=== PATIENT | male | born 1965 | race Caucasian/White ===

== ENCOUNTER 2017-02-14 06:30 | Inpatient (IN) | payer MEDICAID, OTHER ==
[~2017-02-14] VITALS: Ht 177.8 cm; Wt 80.0 kg
[~2017-02-14 06:30] MED LIST: ACET500C5 PO; BACTDS PO; CEPH-443 PO
[2017-02-14] MEDS ORDERED: PIPER-TAZO 3.375 GM IV (PMX) 100 ML IVPB STA ×2 (07:05→11:50)
[2017-02-14] MEDS ORDERED: SODIUM CHLORIDE 0.9% 1L BAG IV* STA (07:05)
[2017-02-14] MEDS ORDERED: VANCOMYCIN 1 GM (PMX) 250 ML IVPB ONE ×2 (07:30→12:00)
[2017-02-14] MEDS ORDERED: LIDOCAINE 1% (MPF) 5 ML VIAL SC ONE (07:30)
[2017-02-14] MEDS ORDERED: ACETAMINOPHEN 325 MG TAB PO PRN ×2 (07:30→08:30)
[2017-02-14] MEDS ORDERED: ONDANSETRON 4 MG INJ IV PRN (07:30)
--- NOTE | 2017-02-14 07:50 | RADRPT ---
PROCEDURE: Chest Radiograph. CLINICAL INDICATION: Sepsis TECHNIQUE: Single frontal chest radiograph. COMPARISON: None available FINDINGS: The cardiomediastinal silhouette is within normal limits. No infiltrate or effusion is seen. Th e bones are intact. IMPRESSION: 1. Unremarkable chest radiograph. RPTAT: HJBF .Andrea Skinner MD, MD Date Time Electronically viewed and signed by .Andrea Skinner MD, on 02/14/2017 07:50 .B/
--- NOTE | 2017-02-14 07:51 | RADRPT ---
PROCEDURE: Right knee series. CLINICAL INDICATION: Right knee pain and infection. TECHNIQUE: Three views of the right knee are available for review. COMPARISON: None available FINDINGS: There is normal mineralization and alignment of the bones of the right knee. No acute fracture or d islocation is identified. There is suggestion of a large knee joint effusion though diffuse soft ti ssue swelling limits evaluation. There is a large skin defect overlying the superior aspect of the anterior knee which extends to the level of the patella. There is no definitive cortical destructio n or other plain film evidence of osteomyelitis. IMPRESSION: 1. Marked soft tissue swelling with large skin defect overlying the anterior knee without definitiv e plain film evidence of osteomyelitis. Please note MRI is far more sensitive for the detection of osteomyelitis. RPTAT: HJBF .Andrea Skinner MD, Date Time Electronically viewed and signed by .Andrea Skinner MD, on 02/14/2017 07:51 .B/
--- NOTE | 2017-02-14 08:21 | ERA ---
ER Documentation Chief Complaint Date/Time DATE: 02/14/17 TIME: 08:17 Chief Complaint r. knee ulceration, non compliant w fu for IV antibx HPI Patient is a 51-year-old male with hypertension and smoking as well as heroin use who presents with a right knee infection and wound. He had an injury 3 weeks ago which has been getting worse over the past 3 weeks. He was seen by another doctor was supposed to be on antibiotics but he has not filled this prescription or taken any antibiotics as of yet. He admits to using heroin and alcohol yesterday. He does smoke cigarettes as well. The wound is deep at this point and there is a black covering to the area, there is also surrounding redness. ROS All systems reviewed and are negative except as per history of present illness. Medications Home Meds Active Scripts Acetaminophen* (Tylophen*) 500 Mg Capsule, 1 CAP PO Q6H Y for PAIN AND OR ELEVATED TEMP, #20 CAP Prov:RACHNA GARZA OIL LEASE OPERATOR 07/07/15 Cephalexin* (Keflex*) 500 Mg Capsule, 500 MG PO QID for 10 Days, CAP Prov:RACHNA GARZA OIL LEASE OPERATOR 07/07/15 Sulfamethoxazole-Trimethoprim* (Bactrim* DS) 800-160 Mg Tab, 1 TAB PO BID for 10 Days, TAB Prov:RACHNA GARZA OIL LEASE OPERATOR 07/07/15 Reported Medications [none] Unknown Strength No Conflict Check 07/07/15 Allergies Allergies: Coded Allergies: No Known Allergy (Unverified , 07/07/15) PMhx/Soc History of Surgery: No Anesthesia Reaction: No Hx Neurological Disorder: No Hx Respiratory Disorders: No Hx Cardiac Disorders: No (HTN) Hx Psychiatric Problems: No Hx Miscellaneous Medical Probl: No (HEP C) Hx Alcohol Use: Yes Hx Substance Use: Yes Hx Tobacco Use: Yes Smoking Status: Current every day smoker FmHx Family History: No diabetes Physical Exam Vitals Vital Signs Date Time Temp Pulse Resp B/P Pulse Ox O2 Delivery O2 Flow Rate FiO2 02/14/17 07:15 97.8 87 18 115/64 99 Room Air 02/14/17 06:44 97.4 77 20 139/77 96 Physical Exam Const: No acute distress Head: Atraumatic Eyes: Normal Conjunctiva ENT: Normal External Ears, Nose and Mouth. Neck: Full range of motion..~ No meningismus. Resp: Clear to auscultation bilaterally Cardio: Regular rate and rhythm, no murmurs Abd: Soft, non tender, non distended. Normal bowel sounds Skin: Deep wound over the anterior portion of the knee on the right side, surrounding erythema, black eschar formation over the middle of the wound Back: No midline or flank tenderness Ext: No cyanosis, or edema, patient does have range of motion of the right lower extremity Neur: Awake and alert Psych: Normal Mood and Affect Results 24 hrs Current Medications Medications (Trade) Dose Ordered Sig/Lauren Route PRN Reason Start Time Stop Time Status Last Admin Dose Admin Sodium Chloride 2540 ml 2,540 ml BOLUS OVER 2 HOURS STAT IV* 02/14/17 07:05 02/14/17 07:08 DC Vancomycin HCl 250 ml @ 125 mls/hr ONCE ONCE IVPB 02/14/17 07:30 02/14/17 09:29 Piperacillin Sod/ Tazobactam Sod (Zosyn 3.375gm/ 100 ml (Pmx)) 100 ml @ 200 mls/hr ONCE STAT IVPB 02/14/17 07:05 02/14/17 07:34 DC Lidocaine (Xylocaine 1% (Mpf)) 5 ml ONCE ONCE SC 02/14/17 07:30 02/14/17 07:31 DC Ondansetron HCl (Zofran Inj) 4 mg BRIDGE ORDER PRN IV NAUSEA AND/OR VOMITING 02/14/17 07:30 02/15/17 07:29 Acetaminophen (Tylenol Tab) 650 mg ER BRIDGE PRN PO MILD PAIN/FEVER 02/14/17 07:30 02/15/17 07:29 Procedures/MDM EKG read by me: Rate/Rhythm: Regular rate and rhythm at a normal rate Intervals: Normal Impression: No evidence of ischemia or arrhythmia PROCEDURE: Right knee series. CLINICAL INDICATION: Right knee pain and infection. TECHNIQUE: Three views of the right knee are available for review. COMPARISON: None available FINDINGS: There is normal mineralization and alignment of the bones of the right knee. No acute fracture or dislocation is identified. There is suggestion of a large knee joint effusion though diffuse soft tissue swelling limits evaluation. There is a large skin defect overlying the superior aspect of the anterior knee which extends to the level of the patella. There is no definitive cortical destruction or other plain film evidence of osteomyelitis. IMPRESSION: 1. Marked soft tissue swelling with large skin defect overlying the anterior knee without definitive plain film evidence of osteomyelitis. Please note MRI is far more sensitive for the detection of osteomyelitis. RPTAT: HJBF .Andrea Skinner MD, MD Date Time Electronically viewed and signed by .Andrea Skinner MD, MD on 2016 07:51 PROCEDURE: Chest Radiograph. CLINICAL INDICATION: Sepsis TECHNIQUE: Single frontal chest radiograph. COMPARISON: None available FINDINGS: The cardiomediastinal silhouette is within normal limits. No infiltrate or effusion is seen. The bones are intact. IMPRESSION: 1. Unremarkable chest radiograph. RPTAT: HJBF .Andrea Skinner MD, MD Date Time Electronically viewed and signed by .Andrea Skinner MD, MD on 2016 07:50 Smoking Cessation Therapy: Pt. was lectured for greater than 3 minutes on the health risks of continued smoking and the benefits of cessation. Patient is a 51-year-old male with hypertension, heroin use, and smoking who presents with a right knee wound which is deep with surrounding cellulitis. This is been getting worse. I am concerned for cellulitis as well as possible osteomyelitis given the depth of the wound. He also is homeless and is using drugs and cigarettes which will contribute to the lack of wound healing. I believe that he requires IV antibiotics and aggressive wound consultation. I spoke with Dr. Langston from the panel team who will admit the patient to a medical surgical bed. The patient would likely benefit from amputation prevention center consultation. At this point I doubt sepsis. The patient has poor IV access given his history of heroin use and says "I need a midline placed". I did order a PICC line at this time for IV access. The patient does not require central line and I think the risks outweigh the benefits at this time. Departure Diagnosis: Primary Impression: Cellulitis Qualified Code: L03.115 - Cellulitis of right lower extremity Additional Impression: Wound infection Condition: GURWINDER Vo MD Feb 14, 2017 08:21
[2017-02-14] MEDS ORDERED: MAGNESIUM HYDROXIDE 30ML CUP PO PRN (08:30)
[2017-02-14] MEDS ORDERED: NACL 0.9% 3 ML SYG IV SCH (08:30)
[2017-02-14] MEDS ORDERED: DOCUSATE SODIUM 100 MG CAP PO PRN (08:30)
[2017-02-14] MEDS ORDERED: BISACODYL (EC) 5 MG TAB PO PRN (08:30)
[2017-02-14] MEDS: ENOXAPARIN 40 MG/0.4 ML SYG SC SCH (09:00)
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
--- NOTE | 2017-02-14 10:35 | RADRPT ---
PROCEDURE: XR Chest. CLINICAL INDICATION: Check PICC line position. TECHNIQUE: Single frontal view. COMPARISON: Prior study done earlier the same day. FINDINGS: There is a left arm PICC line with the tip in the lower superior vena cava. The lungs are clear. The heart size is normal. There is no pleural effusion. There is no pneumothorax. IMPRESSION: 1. Left arm PICC line tip in satisfactory position. 2. Otherwise normal chest radiograph. RPTAT: QQ .Mario Thapa MD, Date Time Electronically viewed and signed by .Mario Thapa MD, on 02/14/2017 10:35 .R/
--- NOTE | 2017-02-14 10:36 | RADRPT ---
PROCEDURE: XR Chest. CLINICAL INDICATION: Check PICC line position. TECHNIQUE: Single frontal view. COMPARISON: Prior study done earlier the same day. FINDINGS: There is a left arm PICC line with the tip in the left subclavian vein, coiled laterally. The lungs are clear. The heart size is normal. There is no pleural effusion. There is no pneumothorax. IMPRESSION: 1. Left arm PICC line tip in satisfactory position, coiled laterally. 2. Otherwise normal chest radiograph. RPTAT: QQ .Mario Thapa MD, MD Date Time Electronically viewed and signed by .Mario Thapa MD, MD on 02/14/2017 10:35 .R/
--- NOTE | 2017-02-14 10:38 | RADRPT ---
PROCEDURE: Ultrasound guidance for placement of needle in left upper extremity vein. CLINICAL INDICATION: Venous access. TECHNIQUE: Limited sonography of the left upper extremity was performed. Ultrasound images were recorded and s tored in the patient's medical record. COMPARISON: None. FINDINGS: The ultrasound images demonstrate a patent left upper extremity vein. The PICC line was inserted by the PICC line nurse. IMPRESSION: 1. Ultrasound guidance for a needle placement in a left upper extremity vein. 2. The left upper extremity vein is patent. RPTAT: QQ .Mario Thapa MD, MD Date Time Electronically viewed and signed by .Mario Thapa MD, MD on 02/14/2017 10:38 .R/
[2017-02-14 11:35] LABS: BASOPHILS % 0.3 % (0.0-2.0); EOSINOPHILS # 0.3 10^3/ul (0.0-0.5); EOSINOPHILS % 4.8 % (0.0-7.0); HEMATOCRIT 32.2 % (42.0-52.0); HEMOGLOBIN 10.7 g/dl (14.0-18.0); LYMPHOCYTES # 2.5 10^3/ul (0.8-2.9); LYMPHOCYTES % 36.7 % (15.0-51.0); MEAN CORPUSCULAR HEMOGLOBIN 28.5 pg (29.0-33.0); MEAN CORPUSCULAR HGB CONC 33.2 g/dl (32.0-37.0); MEAN CORPUSCULAR VOLUME 85.9 fl (82.0-101.0); MEAN PLATELET VOLUME 9.6 fl (7.4-10.4); MONOCYTE # 0.7 10^3/ul (0.3-0.9); MONOCYTES % 9.4 % (0.0-11.0); NEUTROPHILS % 48.7 % (39.0-77.0); PLATELET COUNT 261 10^3/UL (140-415); RED BLOOD COUNT 3.75 10^6/ul (4.70-6.10); RED CELL DISTRIBUTION WIDTH 13.3 % (11.5-14.5); WHITE BLOOD COUNT 6.9 10^3/ul (4.8-10.8)
[2017-02-14] MEDS ORDERED: SOD CHLORIDE 0.9% 100 ML ONE (11:38)
[2017-02-14] MEDS ORDERED: VANCOMYCIN 1 GM (PMX) 250 ML ONE (11:48)
[2017-02-14] MEDS ORDERED: PIPER-TAZO 3.375 GM IV (PMX) 100 ML ONE (11:49)
[2017-02-14 11:57] LABS: ALANINE AMINOTRANSFERASE 39 IU/L (13-69); ALBUMIN 3.6 g/dl (3.3-4.9); ALBUMIN/GLOBULIN RATIO 0.94; ALKALINE PHOSPHATASE 58 IU/L (42-121); ANION GAP 9 (8-16); ASPARTATE AMINO TRANSFERASE 31 IU/L (15-46); BILIRUBIN,INDIRECT 0.1 mg/dl (0-1.1); BILIRUBIN,TOTAL 0.1 mg/dl (0.2-1.3); BLOOD UREA NITROGEN 20 mg/dl (7-20); CALCIUM 8.6 mg/dl (8.4-10.2); CARBON DIOXIDE 28 mmol/L (21-31); CHLORIDE 103 mmol/L (97-110); CREATININE 0.83 mg/dl (0.61-1.24); GLUCOSE 88 mg/dl (70-220); POTASSIUM 3.5 mmol/L (3.5-5.1); SODIUM 136 mmol/L (135-144); TOTAL PROTEIN 7.4 g/dl (6.1-8.1)
[2017-02-14 12:11] LABS: INR 0.91; PROTIME 12.3 Sec (12.2-14.2); TROPONIN-I < 0.012 ng/ml (0.00-0.12)
[2017-02-14 12:12] LABS: PARTIAL THROMBOPLASTIN TIME 34.5 Sec (25.0-35.0)
[2017-02-14] MEDS: CEFAZOLIN 1 GM/50 ML (PMX) 50 ML IVPB SCH (15:20)
[2017-02-14 15:23] VITALS: TEMP 98.4
[2017-02-14 15:43] VITALS: Ht 177.8 cm; Wt 80.0 kg
[2017-02-14 20:00] VITALS: BP 150/83; PULSE 71; RESP 18
[2017-02-14] MEDS: HYDROCODONE/APAP (5/325) TAB PO PRN (21:12)
[2017-02-14 21:15] VITALS: BP 142/85; PULSE 77; RESP 16
[2017-02-14 23:00] VITALS: BP 173/109; PULSE 73; RESP 20
[2017-02-15] MEDS: CEFAZOLIN 1 GM/50 ML (PMX) 50 ML IVPB SCH ×4 (00:14→23:01)
[2017-02-15 00:30] VITALS: BP 180/109; PULSE 75
[2017-02-15] MEDS ORDERED: hydrALAzine 20 MG INJ IV PRN (01:00)
[2017-02-15 03:00] VITALS: BP 153/103; RESP 18
[2017-02-15] MEDS: HYDROCODONE/APAP (5/325) TAB PO PRN ×2 (04:00→10:48)
[2017-02-15 06:58] LABS: ADD UMIC NO; UR ASCORBIC ACID NEGATIVE (NEGATIVE); UR BILIRUBIN (Dip) NEGATIVE (NEGATIVE); UR BLOOD (Dip) NEGATIVE (NEGATIVE); UR CLARITY CLEAR (CLEAR); UR COLOR COLORLESS (YELLOW); UR GLUCOSE (Dip) NEGATIVE (NEGATIVE); UR KETONES (Dip) NEGATIVE (NEGATIVE); UR LEUKOCYTE ESTERASE (Dip) NEGATIVE Leu/ul (NEGATIVE); UR NITRITE (Dip) NEGATIVE (NEGATIVE); UR SPECIFIC GRAVITY (Dip) 1.006 (1.003-1.030); UR TOTAL PROTEIN (Dip) NEGATIVE (NEGATIVE); UR UROBILINOGEN (Dip) NEGATIVE (NEGATIVE)
[2017-02-15] MEDS: ENOXAPARIN 40 MG/0.4 ML SYG SC SCH (08:33)
[2017-02-15 09:30] LABS: BASOPHILS % 0.4 % (0.0-2.0); EOSINOPHILS # 0.2 10^3/ul (0.0-0.5); EOSINOPHILS % 3.1 % (0.0-7.0); HEMATOCRIT 36.9 % (42.0-52.0); HEMOGLOBIN 12.3 g/dl (14.0-18.0); LYMPHOCYTES # 1.5 10^3/ul (0.8-2.9); LYMPHOCYTES % 19.9 % (15.0-51.0); MEAN CORPUSCULAR HEMOGLOBIN 28.1 pg (29.0-33.0); MEAN CORPUSCULAR HGB CONC 33.3 g/dl (32.0-37.0); MEAN CORPUSCULAR VOLUME 84.4 fl (82.0-101.0); MONOCYTE # 0.4 10^3/ul (0.3-0.9); MONOCYTES % 5.9 % (0.0-11.0); NEUTROPHILS % 70.4 % (39.0-77.0); PLATELET COUNT 281 10^3/UL (140-415); RED BLOOD COUNT 4.37 10^6/ul (4.70-6.10); RED CELL DISTRIBUTION WIDTH 13.2 % (11.5-14.5); WHITE BLOOD COUNT 7.4 10^3/ul (4.8-10.8)
[2017-02-15 09:39] LABS: CALCIUM 9.2 mg/dl (8.4-10.2); CREATININE 0.8 mg/dl (0.61-1.24); POTASSIUM 3.7 mmol/L (3.5-5.1)
[2017-02-15] MEDS ORDERED: ALTEPLASE (CATHFLO) 2 MG INJ CATHETER PRN (12:00)
[2017-02-15] MEDS ORDERED: AMLODIPINE 10 MG TAB PO ONE (12:00)
[2017-02-15 12:20] VITALS: BP 168/106; PULSE 81
[2017-02-15] MEDS: HYDROmorphONE 1 MG/ML SYG IV PRN ×3 (12:21→20:25)
[2017-02-15 14:00] VITALS: BP 144/99; RESP 18
--- NOTE | 2017-02-15 16:40 | RADRPT ---
PROCEDURE: XR right elbow. CLINICAL INDICATION: Right elbow pain. TECHNIQUE: Three views. Frontal, lateral, and oblique. COMPARISON: No prior study is available for comparison. FINDINGS: There is no fracture or dislocation. There is fluid in the elbow joint. There are degenerative changes with osteophytes arising from the joint margins. There is no lytic or blastic lesion. There is no radiopaque foreign body. IMPRESSION: 1. Degenerative change. 2. Fluid in the elbow joint. This may indicate a nondisplaced fracture. Correlation with MRI shou ld be considered. 3. Otherwise unremarkable images of the right elbow. RPTAT: QQ .Mario Thapa MD, MD Date Time Electronically viewed and signed by .Mario Thapa MD, MD on 02/15/2017 16:39 .R/
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
[2017-02-15 20:47] VITALS: BP 158/103; RESP 18
[2017-02-15 22:58] VITALS: BP 133/80; PULSE 88
[2017-02-16] MEDS: HYDROmorphONE 1 MG/ML SYG IV PRN ×6 (00:18→20:35)
[2017-02-16 02:11] VITALS: BP 146/91; RESP 18
[2017-02-16 06:13] LABS: BASOPHILS % 0.4 % (0.0-2.0); EOSINOPHILS # 0.4 10^3/ul (0.0-0.5); EOSINOPHILS % 4.8 % (0.0-7.0); HEMATOCRIT 37.9 % (42.0-52.0); HEMOGLOBIN 12.6 g/dl (14.0-18.0); LYMPHOCYTES # 2.3 10^3/ul (0.8-2.9); LYMPHOCYTES % 29.8 % (15.0-51.0); MEAN CORPUSCULAR HEMOGLOBIN 28.5 pg (29.0-33.0); MEAN CORPUSCULAR HGB CONC 33.2 g/dl (32.0-37.0); MEAN CORPUSCULAR VOLUME 85.7 fl (82.0-101.0); MEAN PLATELET VOLUME 9.4 fl (7.4-10.4); MONOCYTE # 0.6 10^3/ul (0.3-0.9); MONOCYTES % 7.3 % (0.0-11.0); NEUTROPHILS % 57.4 % (39.0-77.0); PLATELET COUNT 277 10^3/UL (140-415); RED BLOOD COUNT 4.42 10^6/ul (4.70-6.10); RED CELL DISTRIBUTION WIDTH 13.4 % (11.5-14.5); WHITE BLOOD COUNT 7.8 10^3/ul (4.8-10.8)
[2017-02-16] MEDS: CEFAZOLIN 1 GM/50 ML (PMX) 50 ML IVPB SCH ×3 (06:17→23:00)
[2017-02-16 06:34] LABS: INR 0.91; PROTIME 12.2 Sec (12.2-14.2)
[2017-02-16 06:37] LABS: ALBUMIN 3.4 g/dl (3.3-4.9); ALBUMIN/GLOBULIN RATIO 0.79; BILIRUBIN,INDIRECT 0.1 mg/dl (0-1.1); BILIRUBIN,TOTAL 0.1 mg/dl (0.2-1.3); CALCIUM 9.2 mg/dl (8.4-10.2); CREATININE 0.92 mg/dl (0.61-1.24); POTASSIUM 3.8 mmol/L (3.5-5.1); TOTAL PROTEIN 7.7 g/dl (6.1-8.1)
[2017-02-16 07:30] VITALS: BP 136/89; RESP 18
[2017-02-16] MEDS: ENOXAPARIN 40 MG/0.4 ML SYG SC SCH (08:57)
[2017-02-16] MEDS: AMLODIPINE 10 MG TAB PO SCH (08:58)
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
[2017-02-16 13:30] VITALS: BP 146/91; RESP 18
[2017-02-16 20:05] VITALS: BP 152/92; RESP 18
[2017-02-17 02:00] VITALS: BP 138/92; RESP 18
[2017-02-17] MEDS: CEFAZOLIN 1 GM/50 ML (PMX) 50 ML IVPB SCH ×3 (07:34→22:19)
[2017-02-17 07:37] VITALS: BP 164/99; RESP 18
--- NOTE | 2017-02-17 07:42 | CONS ---
DATE OF ADMISSION: 02/14/2017 DATE OF CONSULTATION: 02/17/2017 CHIEF COMPLAINT: Right knee wound. HISTORY OF PRESENT ILLNESS: This is a 51-year-old male with past medical history, including IV drug use, hepatitis C, who has been noncompliant. Patient has had a previous right knee injury approximately 3 weeks ago. He was previously evaluated by myself at [facility]. He was given IV antibiotics. He was discharged to [facility]. Patient left against medical advice from [facility]. He is complaining of pain over his right knee. He denies any fevers or chills. PAST MEDICAL HISTORY: Hepatitis C and IV drug use. MEDICATION: IV vancomycin as an outpatient. PAST SURGICAL HISTORY: None. SOCIAL HISTORY: Patient is homeless. He admits to tobacco use. He admits to alcohol use. He admits to IV drug use. FAMILY HISTORY: Noncontributory. ALLERGIES: NO KNOWN DRUG ALLERGIES. PHYSICAL EXAMINATION: VITAL SIGNS: 98.2, 138/92, 73 pulse, 18 respiratory rate . GENERAL: Patient is comfortable, in no acute distress. EXTREMITIES: Right knee: There is a large 10 cm eschar over the right knee. There is no drainage. There is no cellulitis. There is no fluctuance. He is able to range his knee from 0-100 degrees. There is no crepitation. He has palpable dorsalis pedis and posterior tibialis pulses. LABORATORY: White blood cell count 7.8. ESR is 33. CRP is 1.2. IMPRESSION: This is a 51-year-old, noncompliant patient, with a right knee scar. PLAN: I spoke with Internal Medicine. There is no orthopedic intervention required. I recommend plastic surgery consultation. If Plastic Surgery is not available, I recommend discharge with a followup with Plastic Surgery. I recommend IV antibiotics per Infectious Disease recommendations. Thank you for the consultation. Dictated By: Judy Devine MD /jose/jordan /Document#: [id number]
[2017-02-17] MEDS: AMLODIPINE 10 MG TAB PO SCH (08:40)
[2017-02-17] MEDS: HYDROmorphONE 1 MG/ML SYG IV PRN ×4 (08:40→21:15)
[2017-02-17] MEDS: ENOXAPARIN 40 MG/0.4 ML SYG SC SCH (08:46)
--- NOTE | 2017-02-17 13:09 | RADRPT ---
PROCEDURE: MRI OF THE RIGHT ELBOW. CLINICAL INDICATION: Right elbow pain. Fluid in the joint. X-ray showed nondisplaced fracture. TECHNIQUE: Multiple MRI images were obtained utilizing multiple sequences and all three planes. Ana Maria ges were interpreted on high-resolution PACS system. COMPARISON: X-ray dated 02/15/2017 FINDINGS: Medial aspect: No evidence for flexor tendinosis or tear. The ulnar collateral ligament is intact. No osteochondral fracture of the medial elbow seen. The ulnar nerve appears normal. Lateral aspect: There is severe lateral epicondylitis present with partial tearing of the common ex tensor tendon origin. There is retraction of 2 cm seen on coronal images 12-15 and axial image numb er 20. There is preservation of the superficial fibers. Partial tearing effects approximately 95 % of the overall cross-sectional area of the common extensor tendon origin. There is reactive soft ti ssue edema. There is also chronic tearing of the origin of the lateral ulnar collateral ligament and radial collateral ligament. Biceps and Triceps Tendons: The biceps and triceps tendons are intact. Osseous structures: Advanced arthrosis of the elbow joint consists of grade 3 to 4 chondromalacia, subcortical sclerosis and cyst formation, subcortical bone marrow edema, osteophyte formation and vicky ne remodeling. Other findings: There is synovitis and a large joint effusion. There is joint debris, probably loos e bodies. IMPRESSION: 1. Advanced elbow arthrosis. 2. No fracture is identified. 3. Severe chronic lateral epicondylitis with extensive partial tearing of the common extensor tendo n origin as well as tearing of the common origin of the radial collateral ligament and lateral ulnar collateral ligament. 4. Synovitis and large joint effusion and there is joint debris, probable loose bodies. RPTAT: XX .Clarence Crawford MD, MD Date Time Electronically viewed and signed by .Clarence Crawford MD, MD on 02/17/2017 13:09 .T/
--- NOTE | 2017-02-17 14:53 | PN ---
Date/Time of Note Date/Time of Note DATE: 02/17/17 TIME: 14:53 Assessment/Plan VTE Prophylaxis VTE Prophylaxis Intervention: LMWH Lines/Catheters IV Catheter Type (from Nrsg): PICC Line Central line still needed: No Assessment/Plan Chief Complaint/Hosp Course 51 yo male with h/o opiate abuse d/o who presents with nonhealing wound of knee 1.Right knee cellulitis, MRI negative for osteomyelitis 2. Intractable right knee pain 3. H/o Fall and H/o Injury to Right knee 4. H/o substance abuse 5. narcotic dependance 6. right elbow pain, MRI elbow shows: -Severe chronic lateral epicondylitis with extensive partial tearing of the common extensor tendon origin as well as tearing of the common origin of the radial collateral ligament and lateral ulnar collateral ligament. Plan: IV abx MRI Right knee negative osteomyelitis - needs plastic surgery consult MRI elbow as above - will ask orthopedics to comment PICC Line in place, Add dialudid 1 mg IV Q 4 hr prn severe pain pain management Consult Dr. Welsh to see pt for pain control SCD for DVT prophylaxis Problems: Subjective 24 Hr Interval Summary Free Text/Dictation Pt stable Still wtih severe pain in knee Unable to ambulate Seen by Dr Ross, no need for orthopedic intervention Exam/Review of Systems Vital Signs Vitals Vital Signs Date Time Temp Pulse Resp B/P Pulse Ox O2 Delivery O2 Flow Rate FiO2 02/17/17 07:37 98.8 78 18 164/99 96 02/14/17 23:00 Room Air Intake and Output 02/16/17 02/16/17 02/17/17 15:00 23:00 07:00 Intake Total 1250 ml 690 ml Output Total 1200 ml Balance 1250 ml -510 ml Exam Appears well Nontoxic Open ulceration over knee. Necrotic central area, borders very clean with healthy grandulation tissue Results Result Diagram: 02/16/17 0546 02/16/17 0546 Medications Medications Current Medications Acetaminophen (Tylenol Tab) 650 mg Q6H PRN PO PAIN LEVEL 1-3 OR FEVER; Start at 08:30 Acetaminophen/ Hydrocodone Bitart ([place] (5/325)) 1 tab Q6H PRN PO MODERATE PAIN LEVEL 4-6 Last administered on 02/15/17t 10:48; Admin Dose 1 TAB; Start at 08:30 Docusate Sodium (Colace) 100 mg Q12H PRN PO CONSTIPATION; Start 02/14/17 at 08: 30 Magnesium Hydroxide (Milk Of Mag) 30 ml DAILY PRN PO CONSTIPATION; Start at 08:30 Bisacodyl (Dulcolax) 5 mg DAILY PRN PO CONSTIPATION; Start 02/14/17 at 08:30 Enoxaparin Sodium 40 mg 40 mg DAILY SC Last administered on 02/17/17 08:46; Admin Dose 40 MG; Start 02/14/17 at 09:00 Cefazolin Sodium (Ancef 1 Gm/50 ml (Pmx)) 50 ml @ 100 mls/hr Q8H IVPB Last administered on 02/17/17 07:34; Admin Dose 100 MLS/HR; Start 02/14/17 at 15:00 Hydralazine HCl (Apresoline) 10 mg Q6H PRN IV ELEVATED SYSTOLIC BP Last administered on 02/15/17 01:00; Admin Dose 10 MG; Start 02/15/17 at 01:00 Amlodipine Besylate (Norvasc) 10 mg DAILY PO Last administered on 02/17/17 08: 40; Admin Dose 10 MG; Start 02/16/17 at 09:00 Hydromorphone HCl (Dilaudid) 2 mg Q4H PRN IV Severe pain Last administered on 12:58; Admin Dose 2 MG; Start 02/15/17 at 12:00 JOE MARTINEZ MD Feb 17, 2017 14:53
[2017-02-17 15:27] VITALS: BP 145/96; RESP 18
[2017-02-17] MEDS: HYDROCODONE/APAP (5/325) TAB PO PRN (15:38)
[2017-02-17 19:23] VITALS: BP 130/90; RESP 18
[2017-02-17] MEDS: SERTRALINE 50 MG TAB PO SCH (21:15)
[2017-02-17] MEDS: METHADONE 10 MG TAB PO SCH (22:18)
[2017-02-18] MEDS: HYDROmorphONE 1 MG/ML SYG IV PRN ×6 (01:16→21:31)
[2017-02-18 02:00] VITALS: BP 126/92; RESP 18
[2017-02-18] MEDS: METHADONE 10 MG TAB PO SCH ×3 (06:20→22:47)
[2017-02-18] MEDS: CEFAZOLIN 1 GM/50 ML (PMX) 50 ML IVPB SCH ×3 (06:20→22:45)
[2017-02-18 07:53] VITALS: BP 132/95; RESP 16
[2017-02-18] MEDS: AMLODIPINE 10 MG TAB PO SCH (09:26)
[2017-02-18] MEDS: ENOXAPARIN 40 MG/0.4 ML SYG SC SCH (09:33)
--- NOTE | 2017-02-18 11:19 | PN ---
Date/Time of Note Date/Time of Note DATE: 02/18/17 TIME: 11:15 Assessment/Plan VTE Prophylaxis VTE Prophylaxis Intervention: SCD's Lines/Catheters IV Catheter Type (from Nrsg): PICC Line Central line still needed: Yes (difficult peripheral access ) Urinary Cath still in place: No Assessment/Plan Assessment/Plan 1.Right knee cellulitis, MRI negative for osteomyelitis 2. Intractable right knee pain 3. H/o Fall and H/o Injury to Right knee 4. H/o substance abuse 5. narcotic dependance 6. right elbow pain, xray showed Severe chronic lateral epicondylitis with extensive partial tearing of the common extensor tendon origin as well as tearing of the common origin of the radial collateral ligament and lateral ulnar collateral ligament. MRI elbow shows: -Severe chronic lateral epicondylitis with extensive partial tearing of the common extensor tendon origin as well as tearing of the common origin of the radial collateral ligament and lateral ulnar collateral ligament. Plan: IV abx MRI Right knee negative osteomyelitis - needs plastic surgery consult MRI elbow as above - will ask orthopedics to comment PICC Line in place, continue dialudid 1 mg IV Q 4 hr prn severe pain Pain management consulted on the case I communicated with ortho on 02/16/17- Not seen by yet as per Nursing staff, No note in system. SCD for DVT prophylaxis Subjective 24 Hr Interval Summary Free Text/Dictation no acute events, BP stable, c/o right knee pain Exam/Review of Systems Vital Signs Vitals Vital Signs Date Time Temp Pulse Resp B/P Pulse Ox O2 Delivery O2 Flow Rate FiO2 02/18/17 07:53 97.7 60 16 132/95 97 02/14/17 23:00 Room Air Intake and Output 02/17/17 02/17/17 02/18/17 14:59 22:59 06:59 Intake Total 50 ml 1720 ml 880 ml Output Total 1000 ml 1220 ml Balance 50 ml 720 ml -340 ml Exam multiple tattoos, significant dirt under fingernails EOMI MMM no mrg lungs clear abd soft no rashes + 8 cm x 4cm wound to R lower knee, subQ fat visible at lateral edges, 6 cm x 3.5cm eschar adherent to middle of wound, ~1 cm of erythema surrounding wound edges, no purulence full AROM R knee 2+ pulses R DP Results Result Diagram: 02/16/17 0546 02/16/1746 Medications Medications Current Medications Acetaminophen (Tylenol Tab) 650 mg Q6H PRN PO PAIN LEVEL 1-3 OR FEVER; Start at 08:30 Acetaminophen/ Hydrocodone Bitart ([place] (5/325)) 1 tab Q6H PRN PO MODERATE PAIN LEVEL 4-6 Last administered on 02/17/17 15:38; Admin Dose 1 TAB; Start at 08:30 Docusate Sodium (Colace) 100 mg Q12H PRN PO CONSTIPATION; Start 02/14/17 at 08: 30 Magnesium Hydroxide (Milk Of Mag) 30 ml DAILY PRN PO CONSTIPATION; Start at 08:30 Bisacodyl (Dulcolax) 5 mg DAILY PRN PO CONSTIPATION; Start 02/14/17 at 08:30 Enoxaparin Sodium 40 mg 40 mg DAILY SC Last administered on 02/18/17 09:33; Admin Dose 40 MG; Start 02/14/17 at 09:00 Cefazolin Sodium (Ancef 1 Gm/50 ml (Pmx)) 50 ml @ 100 mls/hr Q8H IVPB Last administered on 02/18/17 06:20; Admin Dose 100 MLS/HR; Start 02/14/17 at 15:00 Hydralazine HCl (Apresoline) 10 mg Q6H PRN IV ELEVATED SYSTOLIC BP Last administered on 02/15/17 01:00; Admin Dose 10 MG; Start 02/15/17 at 01:00 Amlodipine Besylate (Norvasc) 10 mg DAILY PO Last administered on 02/18/17 09: 26; Admin Dose 10 MG; Start 02/16/17 at 09:00 Hydromorphone HCl (Dilaudid) 2 mg Q4H PRN IV Severe pain Last administered on 09:27; Admin Dose 2 MG; Start 02/15/17 at 12:00 Methadone HCl (Methadone) 10 mg Q8 PO Last administered on 02/18/17 06:20; Admin Dose 10 MG; Start 02/17/17 at 22:00 Sertraline HCl (Zoloft) 50 mg HS PO Last administered on 02/17/17 21:15; Admin Dose 50 MG; Start 02/17/17 at 21:00 REYNALDO MARK MD Feb 18, 2017 11:19
[2017-02-18 14:00] VITALS: BP 130/70; RESP 16
[2017-02-18 20:00] VITALS: BP 136/86; RESP 18
[2017-02-18] MEDS: SERTRALINE 50 MG TAB PO SCH (20:52)
[2017-02-19] MEDS: HYDROmorphONE 1 MG/ML SYG IV PRN ×6 (01:38→22:33)
[2017-02-19 02:00] VITALS: BP 129/86; RESP 18
[2017-02-19 05:37] LABS: BASOPHILS % 0.7 % (0.0-2.0); EOSINOPHILS # 0.4 10^3/ul (0.0-0.5); EOSINOPHILS % 7.5 % (0.0-7.0); HEMATOCRIT 36.2 % (42.0-52.0); HEMOGLOBIN 11.7 g/dl (14.0-18.0); LYMPHOCYTES # 1.9 10^3/ul (0.8-2.9); LYMPHOCYTES % 34.3 % (15.0-51.0); MEAN CORPUSCULAR HEMOGLOBIN 28.5 pg (29.0-33.0); MEAN CORPUSCULAR HGB CONC 32.3 g/dl (32.0-37.0); MEAN CORPUSCULAR VOLUME 88.1 fl (82.0-101.0); MEAN PLATELET VOLUME 8.9 fl (7.4-10.4); MONOCYTE # 0.6 10^3/ul (0.3-0.9); MONOCYTES % 10.9 % (0.0-11.0); NEUTROPHILS % 46.4 % (39.0-77.0); PLATELET COUNT 218 10^3/UL (140-415); RED BLOOD COUNT 4.11 10^6/ul (4.70-6.10); RED CELL DISTRIBUTION WIDTH 13.6 % (11.5-14.5); WHITE BLOOD COUNT 5.6 10^3/ul (4.8-10.8)
[2017-02-19 05:52] LABS: INR 0.94; PROTIME 12.6 Sec (12.2-14.2)
[2017-02-19 05:53] LABS: PARTIAL THROMBOPLASTIN TIME 31.6 Sec (25.0-35.0)
[2017-02-19] MEDS: METHADONE 10 MG TAB PO SCH ×5 (06:00→23:40)
[2017-02-19] MEDS: CEFAZOLIN 1 GM/50 ML (PMX) 50 ML IVPB SCH ×3 (06:22→22:33)
[2017-02-19 06:25] LABS: ALBUMIN 3.4 g/dl (3.3-4.9); ALBUMIN/GLOBULIN RATIO 0.79; CALCIUM 9.1 mg/dl (8.4-10.2); CREATININE 0.76 mg/dl (0.61-1.24); POTASSIUM 4.4 mmol/L (3.5-5.1); TOTAL PROTEIN 7.7 g/dl (6.1-8.1)
[2017-02-19 07:37] VITALS: BP 132/80; RESP 18
[2017-02-19] MEDS: AMLODIPINE 10 MG TAB PO SCH (09:03)
[2017-02-19] MEDS: ENOXAPARIN 40 MG/0.4 ML SYG SC SCH (09:08)
[2017-02-19 14:00] VITALS: BP 145/70; RESP 18
--- NOTE | 2017-02-19 16:31 | PN ---
Date/Time of Note Date/Time of Note DATE: 02/19/17 TIME: 16:29 Assessment/Plan VTE Prophylaxis VTE Prophylaxis Intervention: SCD's Lines/Catheters Urinary Cath still in place: No Assessment/Plan Chief Complaint/Hosp Course 51 yo male with h/o opiate abuse d/o who presents with nonhealing wound of knee 1.Right knee cellulitis, MRI negative for osteomyelitis 2. Intractable right knee pain 3. H/o Fall and H/o Injury to Right knee 4. H/o substance abuse 5. narcotic dependance 6. right elbow pain, MRI elbow shows: -Severe chronic lateral epicondylitis with extensive partial tearing of the common extensor tendon origin as well as tearing of the common origin of the radial collateral ligament and lateral ulnar collateral ligament. Plan: IV abx MRI Right knee negative osteomyelitis - needs plastic surgery consult at [facility] MRI elbow as above - will ask orthopedics to comment PICC Line in place, Add dialudid 1 mg IV Q 4 hr prn severe pain pain management Consult Dr. Welsh to see pt for pain control SCD for DVT prophylaxis Problems: Subjective 24 Hr Interval Summary Musculoskeletal: bone/joint pain Exam/Review of Systems Vital Signs Vitals Vital Signs Date Time Temp Pulse Resp B/P Pulse Ox O2 Delivery O2 Flow Rate FiO2 02/19/17 14:00 98.7 68 18 145/70 100 Intake and Output 02/18/17 02/18/17 02/19/17 15:00 23:00 07:00 Intake Total 2630 ml 450 ml Output Total 600 ml Balance 2030 ml 450 ml Exam Constitutional: alert Respiratory: clear to auscultation Cardiovascular: regular rate and rhythm Gastrointestinal: soft, No distended Musculoskeletal: nl extremities to inspection Results Result Diagram: 02/19/17 0507 02/19/17 0507 Results 24 hrs Laboratory Tests Test 02/19/17 05:01 02/19/17 05:07 Prothrombin Time 12.6 Prothrombin Time Ratio 1.0 INR International Normalized Ratio 0.94 Activated Partial Thromboplast Time 31.6 White Blood Count 5.6 # Red Blood Count 4.11 L Hemoglobin 11.7 L Hematocrit 36.2 L Mean Corpuscular Volume 88.1 Mean Corpuscular Hemoglobin 28.5 L Mean Corpuscular Hemoglobin Concent 32.3 Red Cell Distribution Width 13.6 Platelet Count 218 # Mean Platelet Volume 8.9 Neutrophils % 46.4 Lymphocytes % 34.3 Monocytes % 10.9 Eosinophils % 7.5 H Basophils % 0.7 Nucleated Red Blood Cells % 0.0 Neutrophils # (Manual) 2.6 Lymphocytes # 1.9 Monocytes # 0.6 Eosinophils # 0.4 Basophils # 0.0 Nucleated Red Blood Cells # 0.0 Sodium Level 138 Potassium Level 4.4 Chloride Level 96 L Carbon Dioxide Level 33 H Anion Gap 13 Blood Urea Nitrogen 17 Creatinine 0.76 Glucose Level 79 Calcium Level 9.1 Total Bilirubin 0.0 L Direct Bilirubin 0.00 Indirect Bilirubin 0.0 Aspartate Amino Transf (AST/SGOT) 38 Alanine Aminotransferase (ALT/SGPT) 37 Alkaline Phosphatase 48 Total Protein 7.7 Albumin 3.4 Globulin 4.30 H Albumin/Globulin Ratio 0.79 Medications Medications Current Medications Acetaminophen (Tylenol Tab) 650 mg Q6H PRN PO PAIN LEVEL 1-3 OR FEVER; Start at 08:30 Acetaminophen/ Hydrocodone Bitart ([place] (5/325)) 1 tab Q6H PRN PO MODERATE PAIN LEVEL 4-6 Last administered on 02/17/17 15:38; Admin Dose 1 TAB; Start at 08:30 Docusate Sodium (Colace) 100 mg Q12H PRN PO CONSTIPATION; Start 02/14/17 at 08: 30 Magnesium Hydroxide (Milk Of Mag) 30 ml DAILY PRN PO CONSTIPATION; Start at 08:30 Bisacodyl (Dulcolax) 5 mg DAILY PRN PO CONSTIPATION; Start 02/14/17 at 08:30 Enoxaparin Sodium 40 mg 40 mg DAILY SC Last administered on 02/19/17 09:08; Admin Dose 40 MG; Start 02/14/17 at 09:00 Cefazolin Sodium (Ancef 1 Gm/50 ml (Pmx)) 50 ml @ 100 mls/hr Q8H IVPB Last administered on 02/19/17 16:12; Admin Dose 100 MLS/HR; Start 02/14/17 at 15:00 Hydralazine HCl (Apresoline) 10 mg Q6H PRN IV ELEVATED SYSTOLIC BP Last administered on 02/15/17 01:00; Admin Dose 10 MG; Start 02/15/17 at 01:00 Amlodipine Besylate (Norvasc) 10 mg DAILY PO Last administered on 02/19/17 09: 03; Admin Dose 10 MG; Start 02/16/17 at 09:00 Hydromorphone HCl (Dilaudid) 2 mg Q4H PRN IV Severe pain Last administered on 14:38; Admin Dose 2 MG; Start 02/15/17 at 12:00 Methadone HCl (Methadone) 10 mg Q8 PO Last administered on 02/19/17 16:11; Admin Dose 10 MG; Start 02/17/17 at 22:00 Sertraline HCl (Zoloft) 50 mg HS PO Last administered on 02/18/17 20:52; Admin Dose 50 MG; Start 02/17/17 at 21:00 EDWARD FRIEND Feb 19, 2017 16:31
[2017-02-19 19:48] VITALS: BP 136/81; RESP 20
[2017-02-19] MEDS: SERTRALINE 50 MG TAB PO SCH (20:31)
[2017-02-20 02:01] VITALS: BP 139/76; RESP 20
[2017-02-20] MEDS: HYDROmorphONE 1 MG/ML SYG IV PRN ×3 (02:34→10:36)
[2017-02-20] MEDS: METHADONE 10 MG TAB PO SCH ×3 (06:00→14:20)
[2017-02-20] MEDS: CEFAZOLIN 1 GM/50 ML (PMX) 50 ML IVPB SCH ×2 (06:42→14:20)
[2017-02-20 07:30] VITALS: BP 121/76; RESP 20
[2017-02-20] MEDS: AMLODIPINE 10 MG TAB PO SCH (08:40)
[2017-02-20] MEDS: ENOXAPARIN 40 MG/0.4 ML SYG SC SCH (08:44)
[2017-02-20] MEDS ORDERED: HYDR-906 PO (10:34)
[2017-02-20] MEDS ORDERED: METH10TA2 PO (10:34)
[2017-02-20] MEDS ORDERED: SERT50TA6 PO (10:34)
[2017-02-20] MEDS ORDERED: AMLO-147 PO (10:34)
--- NOTE | 2017-02-20 10:37 | PDOCDIS ---
Discharge Instructions CONDITION Patient Condition: Good HOME CARE INSTRUCTIONS: Diet Instructions: Regular ACTIVITY: Activity Restrictions: No Restrictions FOLLOW UP/APPOINTMENTS Follow-up Plan F/U WITH YOUR PCP OR EDWARD GALAN Feb 20, 2017 10:37
[2017-02-20 13:13] VITALS: BP 110/57; RESP 19
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
== END 2017-02-20 15:15 | disposition home or self-care (01) | DRG 603 ==
LOC: FTE 06:30 → MS3 07:18 → MS2 22:40
PROVIDERS: ADMIT Family Medicine; ATTEND Family Medicine
PROC: 02HV33Z Insertion of Infusion Device into Superior Vena Cava, Percutaneous Approach (ICD-10-PCS; principal; 2017-02-14)
DX: L03.115 Cellulitis of right lower limb (principal); F11.20 Opioid dependence, uncomplicated; I10 Essential (primary) hypertension; Z59.0 Homelessness; M25.521 Pain in right elbow; Z72.0 Tobacco use; Z91.14 Patient's other noncompliance with medication regimen; B19.20 Unspecified viral hepatitis C without hepatic coma; Z72.89 Other problems related to lifestyle; M77.11 Lateral epicondylitis, right elbow; S56.5 Injury of other extensor muscle, fascia and tendon at forearm level; S53.491D Other sprain of right elbow, subsequent encounter; V19.9XXD Pedal cyclist (driver) (passenger) injured in unspecified traffic accident, subsequent encounter
CPT/HCPCS: 36415; 36569; 71010; 73070; 73221; 73562; 73721; 76937; 80048; 80053; 81003; 83605; 84484; 85025; 85610; 85651; 85730; 86140; 87040; 93005; 96361; 96365; 96366; 96367; 96372; 96375; J0360; J0690; J1170; J1650; J2543; J2997; J3370; J7030

== ENCOUNTER 2018-12-19 03:51 | Inpatient (IN) | payer MEDICAID ==
[~2018-12-19] VITALS: Ht 177.8 cm; Wt 76.2 kg
[~2018-12-19 03:51] MED LIST changes: -ACET500C5 PO; +AMLO-147 PO; -BACTDS PO; -CEPH-443 PO; +HYDR-4011 PO; +SERT50TA6 PO
[2018-12-19] MEDS ORDERED: LIDOCAINE 1% (MDV) 20 ML INJ SC ONE (04:30)
[2018-12-19] MEDS ORDERED: ACETAMINOPHEN 325 MG TAB PO PRN ×2 (06:00→06:30)
[2018-12-19] MEDS ORDERED: ONDANSETRON 4 MG INJ IV PRN ×2 (06:00→06:30)
--- NOTE | 2018-12-19 06:12 | ERD ---
ER Documentation Chief Complaint Chief Complaint multiple abscesses on his arms x 1week; hx skin-popping w/heroin HPI This is a 53-year-old male with a past medical history of hypertension, polysubstance abuse who is presenting for concerns of multiple abscesses to his arms. The patient was recently released from nursing home. He has poor venous access and has resorted to skin popping his heroin. The patient has multiple small ulcerative erythematous lesions to the arms bilaterally. However, the patient does have one very large red warm fluctuant indurated mass to the right deltoid. The patient's right upper extremity is also more swollen than typical. The patient denies feeling sick recently. The patient denies fever or chills. The patient has had no headache or vision changes. The patient does not endorse neck or back pain. The patient denies lightheadedness or dizziness. The patient has had no chest pain or trouble breathing. The patient denies nausea or vomiting. The patient denies abdominal pain. The patient denies changes to bowel movements or urination. The patient has had no focal deficits. The patient has had no weakness or numbness or tingling to the face or extremities. ROS All systems reviewed and are negative except as per history of present illness. Medications Home Meds Active Scripts Hydrocodone/Acetaminophen ([place] 5-325 Tablet) 1 Each Tablet, 1 EACH PO Q4 for SEVERE PAIN LEVEL 7-10, #30 TAB Prov:EDWARD FRIEND 02/20/17 Sertraline Hcl* (Sertraline Hcl*) 50 Mg Tablet, 50 MG PO HS, #30 TAB Prov:EDWARD FRIEND 02/20/17 Amlodipine Besylate* (Amlodipine Besylate*) 10 Mg Tablet, 10 MG PO DAILY, #60 TAB Prov:EDWARD FRIEND 02/20/17 Allergies Allergies: Coded Allergies: No Known Allergy (Unverified , 07/07/15) PMhx/Soc History of Surgery: No Anesthesia Reaction: No Hx Neurological Disorder: No Hx Respiratory Disorders: No Hx Cardiac Disorders: Yes (HTN) Hx Psychiatric Problems: Yes ("I TALK TO MYSELF SOMETIMES") Hx Miscellaneous Medical Probl: No (HEP C) Hx Alcohol Use: Yes Hx Substance Use: Yes Hx Tobacco Use: Yes Smoking Status: Current every day smoker FmHx Family History: No diabetes Physical Exam Vitals Vital Signs Date Temp Pulse Resp B/P (MAP) Pulse Ox O2 O2 Flow FiO2 Time Delivery Rate 12/19/18 90 22 164/87 95 Room Air 05:33 (112) 12/19/18 99.2 105 18 164/87 95 03:53 (112) Physical Exam Const: No acute distress Head: Atraumatic Eyes: Normal Conjunctiva ENT: Normal External Ears, Nose and Mouth. Neck: Full range of motion. No meningismus. Resp: Clear to auscultation bilaterally Cardio: Regular rate and rhythm, no murmurs Abd: Soft, non tender, non distended. Normal bowel sounds Skin: No petechiae or rashes Back: No midline or flank tenderness Ext: No cyanosis. Right upper extremity edema with a large 6 cm warm fluctuant erythematous indurated mass. Neur: Awake and alert Psych: Normal Mood and Affect Results 24 hrs Current Medications Medications Dose Sig/Lauren Start Time Status Last (Trade) Ordered Route PRN Stop Time Admin Dose Reason Admin Lidocaine 10 ml ONCE ONCE 12/19/18 DC (Xylocaine SC 04:30 1% (Mdv) 20 12/19/18 04:31 ml) Procedures/MDM MDM The patient's presentation warrants further investigation. Previous medical records, if available, were reviewed. LABS The patient's laboratory testing was obtained and reviewed. No emergent treatment was required unless described below. CBC: Pending Chemistry: Pending Blood culture: Pending IMAGING Imaging and Radiology interpretation reviewed. Chest x-ray Pending X-ray right humerus Pending CT right upper extremity with and without contrast Pending Soft Tissue ultrasound Performed by tn Indication: Erythema Location: Right bicep Foreign Body: none Fluid Loculation: Present, appearing to be deep to the muscular layer TREATMENT/DISPOSITION The patient presents for a complicated right upper extremity abscess. A bedside ultrasound was completed, and the abscess appears to be deep to the muscle tissue. I do feel that this is going to likely require washout in the operating room. Dr Weiss, the on-call orthopedic surgeon, was consulted on the case. Preoperative testing was ordered. He also requested that an x-ray of the right humerus as well as a CT scan of the right upper extremity with and without contrast be completed. These tests were also ordered. The patient is afebrile and does not appear systemically ill. The patient is not septic. In speaking with the on-call orthopedic physician, he requested that we not initiate antibiotics immediately so that way we may be able to get an appropriate culture in the OR. I do feel that this is appropriate at this time. The patient's laboratory and imaging studies are currently pending. They will be followed up on by the orthopedic physician as well as the admitting team. ADMISSION At this time, I feel that the patient requires admission for further evaluation and management. The patient will be admitted to panel in accordance with the patient's insurance. The patient was accepted by Dr. Hawthorne at 6 AM on December 19, 2018. Disclaimer: Inadvertent spelling and grammatical errors are likely due to EHR/dictation software use and do not reflect on the overall quality of patient care. Note that the electronic time recorded on this note does not necessarily reflect the actual time of the patient encounter. Departure Diagnosis: Primary Impression: Complicated abscess Additional Impressions: Heroin abuse Abscess of multiple sites Condition: Serious ZARINA HARRIS MD Dec 19, 2018 06:12
[2018-12-19] MEDS: SOD CHLORIDE 0.9% 1,000 ML IV SCH ×2 (06:24→17:27)
[2018-12-19] MEDS ORDERED: HYDROmorphONE 0.5 MG/0.5 ML SYG IV PRN (06:30)
[2018-12-19] MEDS ORDERED: DOCUSATE SODIUM 100 MG CAP PO PRN (06:30)
[2018-12-19] MEDS ORDERED: BISACODYL (EC) 5 MG TAB PO PRN (06:30)
[2018-12-19] MEDS ORDERED: NACL 0.9% 3 ML SYG IV SCH (06:30)
[2018-12-19] MEDS ORDERED: SOD CHLORIDE 0.9% 100 ML ONE (07:42)
[2018-12-19] MEDS ORDERED: IOHEXOL 300MG/ML 150 ML BTL ONE (07:42)
--- NOTE | 2018-12-19 07:42 | HP ---
Date/Time of Note Date/Time of Note DATE: 12/19/18 TIME: 07:27 Assessment/Plan VTE Prophylaxis SCD applied (from Nsg): Yes Pharmacological prophylaxis: NA/contraindicated Pharm contraindication: low risk/ambulating Lines/Catheters IV Catheter Type (from Nrsg): Saline Lock Assessment/Plan Hospital Course This is a 53-year-old male being admitted to the [facility] floor for: #1 bilateral bicep abscesses: Secondary to IV drug use. He has an open abscess of the left bicep and a closed right abscess. X-ray of the right humerus showed soft tissue swelling. Further imaging studies including a CT scan are pending. A call was placed by the emergency physician to the orthopedic surgeon and recommendation was to not start immediately on antibiotics given that the patient is currently not septic. Plan is to take the patient to the OR and obtain cultures and then initiate antibiotics. We will keep the patient n.p.o., provide pain control. Zofran for nausea. IV fluid hydration with normal saline. CRP elevated at 12. Trend ESR and CRP. Patient is a fully functioning independent male. He is able to walk up and down 2 flights of stairs without any chest pain or shortness of breath. His functional METS are greater than 4. EKG and chest x-ray are within normal values. He is medically optimized to proceed to the OR. #2 hypertension: He is currently not on medications, he did report that when he was incarcerated he was on blood pressure meds but has since not been on anything. Will initiate lisinopril 10 mg p.o. daily, PRN hydralazine #3 history of IV drug use: Recently used heroin just yesterday. We will check hepatitis panel. PRN Ativan for withdrawal. #4 leukocytosis: Likely secondary to underlying abscess. Patient will be going to the OR with orthopedic surgery. He will have cultures drawn. Will initiate antibiotics at that time. #5 microcytosis: We will check iron stores #6 DVT GI prophylaxis: SCDs, no GI prophylaxis indicated Further treatment strategy will be implemented as per the clinical course. Result Diagram: 12/19/1833 12/19/18 0633 Results 24hrs Laboratory Tests Test 12/19/18 06:33 12/19/18 06:34 White Blood Count 14.6 #H Red Blood Count 4.04 L Hemoglobin 11.0 L Hematocrit 33.0 L Mean Corpuscular Volume 81.7 L Mean Corpuscular Hemoglobin 27.2 L Mean Corpuscular Hemoglobin Concent 33.3 Red Cell Distribution Width 13.9 Platelet Count 320 # Mean Platelet Volume 9.2 Immature Granulocytes % 0.400 Neutrophils % 73.6 Lymphocytes % 16.1 Monocytes % 8.6 Eosinophils % 1.0 Basophils % 0.3 Nucleated Red Blood Cells % 0.0 Immature Granulocytes # 0.060 H Neutrophils # 10.7 H Lymphocytes # 2.4 Monocytes # 1.3 H Eosinophils # 0.2 Basophils # 0.0 Nucleated Red Blood Cells # 0.0 Sodium Level 138 Potassium Level 4.2 Chloride Level 101 Carbon Dioxide Level 26 Anion Gap 11 Blood Urea Nitrogen 25 H Creatinine 0.95 Est Glomerular Filtrat Rate mL/min > 60 Glucose Level 99 Calcium Level 8.7 Magnesium Level 1.9 C-Reactive Protein 12.3 H Prothrombin Time 14.2 Prothrombin Time Ratio 1.1 INR International Normalized Ratio 1.09 HPI/ROS Admit Date/Time Admit Date/Time Hx of Present Illness Chief complaint: Bilateral arm abscess This is a 53-year-old male with a past medical history of hypertension, polysubstance abuse who is presenting for concerns of multiple abscesses to his arms. The patient was recently released from [facility]. He reports IV drug use with most recent use yesterday of IV heroin.. The patient has multiple small ulcerative erythematous lesions to the arms bilaterally. However, the patient does have one very large red warm fluctuant indurated mass to the right bicep. On the left biceps there does appear to be an abscess along with wound opening with drainage. He denies any fevers. He states he started noticing the abscess 1 week ago with it starting to drain approximately 2 days ago on the left arm. Patient is a fully functioning independent male. He is able to walk up and down 2 flights of stairs without any chest pain or shortness of breath. Allergies: NKDA Medications: None ROS Const: As per HPI Eyes : No pain discharge or redness or change in visual acuity ENT: No pain, sore throat, congestion, congestion, dysphagia or discharge Respiratory: No shortness of breath, cough, sputum, wheezing, or pleuritic pain Cardiovascular: No chest pain, palpitation, PND, or edema GI : no change in appetite, abdominal pain, nausea, vomiting, diarrhea, const ipation, or change in the color his stool Genitourinary: No dysuria, hematuria, flank pain , discharge or CVA tenderness Musculoskeletal: As per HPI Skin: As per HPI Neuro: No headache, dizziness, syncope, seizure, focal weakness Endocrine: No polyuria, polydipsia, temperature intolerance Psych: No hallucination, depression, anxiety or suicidal ideation PMH/Family/Social Past Medical History Hypertension, history of IV drug use, history of abscesses Medications Current Medications Ondansetron HCl (Zofran Inj) 4 mg BRIDGE ORDER PRN IV NAUSEA/VOMITING Last administered on 12/19/18at 06:25; Admin Dose 4 MG; Start 12/19/18 at 06:00; Stop 12/20/18 at 05:59 Acetaminophen (Tylenol Tab) 650 mg ER BRIDGE PRN PO .MILD PAIN 1-3 OR TEMP; Start 12/19/18 at 06:00; Stop 12/20/18 at 05:59 Amlodipine Besylate (Norvasc) 10 mg DAILY PO ; Start 12/19/18 at 09:00 Sodium Chloride 1,000 ml @ 100 mls/hr Q10H IV Last administered on 12/19/18at 06:24; Admin Dose 100 MLS/HR; Start 12/19/18 at 06:03 IV Flush (NS 3 ml) 3 ml PER PROTOCOL IV ; Start 12/19/18 at 06:30 Ondansetron HCl (Zofran Inj) 4 mg Q6H PRN IV NAUSEA/VOMITING; Start 12/19/18 at 06:30 Acetaminophen (Tylenol Tab) 650 mg Q6H PRN PO .PAIN 1-3 OR TEMP; Start 12/19/18 at 06:30 Hydromorphone HCl (Dilaudid) 0.5 mg Q4H PRN IV .SEVERE PAIN 7-10 Last admin istered on 12/19/18at 06:28; Admin Dose 0.5 MG; Start 12/19/18 at 06:30 Docusate Sodium (Colace) 100 mg Q12H PRN PO .CONSTIPATION; Start 12/19/18 at 06:30 Bisacodyl (Dulcolax) 5 mg DAILY PRN PO .CONSTIPATION; Start 12/19/18 at 06:30 Coded Allergies: No Known Allergy (Unverified , 07/07/15) Past Surgical History Past Surgical Hx: no surgical history Family History Significant Family History: no pertinent family hx Social History Alcohol Use: occasionally Smoking Status: Current every day smoker Drug Use: marijuana, other (IV heroin use) Exam/Review of Systems Vital Signs Vitals Vital Signs Date Temp Pulse Resp B/P (MAP) Pulse Ox O2 O2 Flow FiO2 Time Delivery Rate 12/19/18 88 18 171/86 96 Room Air 06:48 (114) 12/19/18 99.2 03:53 Exam Exam General: Patient is currently sitting up in bed, he does appear to be in mild pain in his bilateral arms HEENT: Atraumatic, normocephalic. The pupils are equal, round and reactive. Extraocular motor are intact Neck: Supple with full range of motion. No rigidity or meningismus Chest: Nontender Lungs: Clear to auscultation bilaterally no crackles rales or wheezing Heart: Normal S1-S2, Regular rhythm and rate. No murmur, S3, or S4 Abdomen: Soft , nontender, nondistended , bowel sounds are present. No guarding no rebound tenderness , No masses or organomegaly. No costovertebral temporal angle mass Extremities: Normal to inspection, no edema no cyanosis Skin: Right bicep: Does appear warm to touch, swollen, indurated. Left bicep: Warm to touch, swollen there does appear to be a wound opening with scant pus drainage noted. Multiple tattoos Neurologic: Normal mental status, speech normal, cranial nerves II through XII are intact, motor and sensory are intact, no focal weakness Additional Comments EKG: Normal sinus rhythm at approximately 91 bpm, LVH PROCEDURE: XR Chest. CLINICAL INDICATION: preop TECHNIQUE: Portable AP view of the chest was obtained. COMPARISON: CR CHEST 02/14/2017 FINDINGS: No pulmonary consolidation or edema. No effusion or pneumothorax. Cardiac silhouette is normal. No acute osseous abnormality. IMPRESSION: No evidence for active cardiopulmonary disease. RPTAT:AAJJ Physician Christiano Date Time Electronically viewed and signed by Jes Sams Physician on 12/19/2018 07:28 RF/ CC: ZARINA HARRIS MD [id number] PROCEDURE: Right humerus x-ray CLINICAL INDICATION: deep space infection TECHNIQUE: AP and lateral views of the humerus were obtained. COMPARISON: None FINDINGS: No acute fracture or dislocation. Mild arthrosis of the shoulder and elbow. Soft tissue swelling without evidence of foreign body. IMPRESSION: Soft tissue swelling without osseous abnormality. RPTAT:AAJJ Jes Sams, Physician Date Time Electronically viewed and signed by Jes Sams Physician on 12/19/2018 07:29 RF/ CC: ZARINA HARRIS MD [id number] MAK PRAKASH Dec 19, 2018 07:37
[2018-12-19] MEDS ORDERED: hydrALAzine 20 MG INJ IV PRN (08:00)
[2018-12-19] MEDS ORDERED: LISINOPRIL 10 MG TAB PO ONE (08:00)
[2018-12-19] MEDS: AMLODIPINE 10 MG TAB PO SCH (08:11)
--- NOTE | 2018-12-19 09:41 | CONS ---
DATE OF ADMISSION: 12/19/2018 DATE OF CONSULTATION: 12/19/2018 TYPE OF CONSULTATION: Infectious Disease. REASON FOR CONSULTATION: Antibiotic management. HISTORY OF PRESENT ILLNESS: Omer Adam is a 53-year-old male who comes in with multiple abscesse s on his arm of 1 week duration. His past problems include; hypertension, polysubstance abuse with a history of skin popping with heroin and he presents with multiple abscesses to his arm. The patient was recently released from [facility]. He has poor venous access and resorted to skin popping with heroin . He has multiple small ulcerative erythematous lesions to the arm and 1 very large warm, red, fluct uant or indurated mass in the right deltoid, his right upper extremity is more swollen than typical. He denies fever or chills. He denies nausea or vomiting and no focal deficits. PAST MEDICAL HISTORY: He has hypertension. He claims to talk to himself sometimes, he has history o f hepatitis C. FAMILY HISTORY: Noncontributory. SOCIAL HISTORY: He smokes, drinks and abuses drugs. He is an everyday smoker. ALLERGIES: NONE TO PENICILLIN, SULFA OR FOODS. MEDICATIONS: Per chart. REVIEW OF SYSTEMS: As per HPI. PHYSICAL EXAMINATION: GENERAL: The patient is in no acute distress. VITAL SIGNS: Stable. He is afebrile. SKIN: Without generalized rash. HEENT: Within normal limits. NECK: Supple. LYMPH NODES: None palpable. CHEST: Decreased breath sounds at the bases. HEART: Without murmur or gallop. ABDOMEN: Soft, nontender, without organosplenomegaly or masses. EXTREMITIES: Right upper extremity edema with a 6 cm warm, fluctuant, erythematous, indurated mass o n presentation. RECTAL AND GENITAL: Deferred. NEUROLOGICAL: No focal neurological abnormality. IMPRESSION AND PLAN: CT scan of the right upper extremity was ordered, bedside ultrasound was comple ashley, abscess appears to be deep to the muscle tissue and a washout in the operating room is probably required. Dr. Weiss is the on-call orthopedic surgeon and was consulted. Preoperative testing was or dered. Chest x-ray shows no active disease. CT scan shows an intramuscular abscess in the biceps thompson perimposed on severe diffuse soft tissue swelling, likely representing cellulitis, no soft tissue gas to suggest necrotizing fasciitis. No CT evidence of acute osteomyelitis. An x-ray of the humerus w as done, soft tissue swelling without osseous abnormality. One blood culture was done. Dr. Hawthorne saw the patient. Dr. Weiss's recommendation was not to start antibiotics immediately given that the p atient is not septic. He is to be taken to the OR to obtain cultures and initiate antibiotics. He i s currently n.p.o. Check on ESR and CRP. His white count today is 14.6, hemoglobin and hematocrit 1 1 and 33, platelet count 320,000, BUN and creatinine 25/0.95, glucose of 99 with 74% neutrophils. We will await surgical evaluation and once the patient has his abscess cultured, he should be started a t least on vancomycin and probably Levaquin or Zosyn. I will dictate my findings to the hospitalist and to Dr. Weiss. Dictated By: NIKO PÉREZ MD, JD/NTS Conf#: [id number] DID#: [id number] CC: OMI WEISS; ZARINA HARRIS MD;*[facility]*
[2018-12-19] MEDS: HYDROmorphONE 1 MG/ML SYG IV PRN ×3 (10:13→19:59)
[2018-12-19 10:18] VITALS: BP 136/73; PULSE 90; RESP 18
[2018-12-19 10:19] VITALS: Ht 177.8 cm; Wt 76.2 kg
[2018-12-19 14:00] VITALS: BP 130/76; PULSE 88; RESP 18
[2018-12-19] MEDS ORDERED: GUAIFENESIN/CODEINE 5ML CUP PO PRN (18:00)
[2018-12-19] MEDS ORDERED: VANCOMYCIN IV PER PHARMACY XX SCH (18:00)
[2018-12-19] MEDS ORDERED: VANCOMYCIN HCL 1.5 GM in SOD CHLORIDE 0.9% 250 ML IVPB SCH (18:30)
[2018-12-19 20:00] VITALS: BP 149/71; PULSE 102; RESP 20
--- NOTE | 2018-12-19 21:19 | CONS ---
Assessment/Plan Assessment/Plan Hospital Course (Demo Recall) 53-year-old male with right intramuscular biceps abscess. He will need this to be surgically debrided. Patient was scheduled to have irrigation debridement tonight. However the patient was unfortunately given dinner. Patient will be rescheduled for tomorrow. He is to be n.p.o. at midnight. Consultation Date/Type/Reason Admit Date/Time Date of Consultation: Dec 19, 2018 Reason for Consultation Right bicep abscess Date/Time of Note DATE: 12/19/18 TIME: 21:13 Hx of Present Illness 53-year-old [id number] male with history of IV drug abuse presented to the ED with 1 week of right arm pain and swelling. He does endorse fevers and chills. He does use heroin on a regular basis. Last use was few days ago. He has had numerous previous abscesses. He was recently incarcerated, but now is homeless. Patient states he has some numbness tingling in his right arm which is stable for many years. Denies any shoulder or elbow or wrist pain. Patient denies shortness of breath, chest pain, nausea/vomiting, constipation, diarrhea. Positive for fevers and chills. Positive for numbness and tingling. Past Medical History Hypertension Hepatitis C Home Meds Active Scripts Hydrocodone/Acetaminophen ([place] 5-325 Tablet) 1 Each Tablet, 1 EACH PO Q4 for SEVERE PAIN LEVEL 7-10, #30 TAB Prov:EDWARD FRIEND 02/20/17 Sertraline Hcl* (Sertraline Hcl*) 50 Mg Tablet, 50 MG PO HS, #30 TAB Prov:EDWARD FRIEND 02/20/17 Amlodipine Besylate* (Amlodipine Besylate*) 10 Mg Tablet, 10 MG PO DAILY, #60 TAB Prov:EDWARD FRIEND 02/20/17 Medications Current Medications Amlodipine Besylate (Norvasc) 10 mg DAILY PO Last administered on 12/19/18at 08:11; Admin Dose 10 MG; Start 12/19/18 at 09:00 Sodium Chloride 1,000 ml @ 100 mls/hr Q10H IV Last administered on 12/19/18at 17:27; Admin Dose 100 MLS/HR; Start 12/19/18 at 06:03 IV Flush (NS 3 ml) 3 ml PER PROTOCOL IV ; Start 12/19/18 at 06:30 Ondansetron HCl (Zofran Inj) 4 mg Q6H PRN IV NAUSEA/VOMITING; Start 12/19/18 at 06:30 Acetaminophen (Tylenol Tab) 650 mg Q6H PRN PO .PAIN 1-3 OR TEMP; Start 12/19/18 at 06:30 Docusate Sodium (Colace) 100 mg Q12H PRN PO .CONSTIPATION; Start 12/19/18 at 06:30 Bisacodyl (Dulcolax) 5 mg DAILY PRN PO .CONSTIPATION; Start 12/19/18 at 06:30 Hydralazine HCl (Apresoline) 10 mg Q4H PRN IV ELEVATED BLOOD PRESSURE Last administered on 12/19/18at 08:43; Admin Dose 10 MG; Start 12/19/18 at 08:00 Lisinopril (Zestril) 10 mg DAILY PO ; Start 12/20/18 at 09:00 Hydromorphone HCl (Dilaudid) 1 mg Q4H PRN IV .SEVERE PAIN 7-10 Last administered on 12/19/18at 19:59; Admin Dose 1 MG; Start 12/19/18 at 10:30 Guaifenesin/ Codeine Phosphate (Robitussin Ac Liquid Cup) 5 ml Q4H PRN PO COUGH Last administered on 12/19/18at 20:00; Admin Dose 5 ML; Start 12/19/18 at 18:00; Stop 12/20/18 at 17:59 Cefepime HCl 50 ml @ 100 mls/hr Q12 IVPB ; Start 12/19/18 at 21:00 Vancomycin HCl (Vanco Iv Per Pharmacy) VANCOMYCIN PER PHARMACY PER PROTOCOL XX ; Start 12/19/18 at 18:00 Vancomycin HCl 1.5 gm/Sodium Chloride 250 ml @ 83.333 mls/ hr NOW IVPB Last administered on 12/19/18at 18:59; Admin Dose 83.333 MLS/HR; Start 12/19/18 at 18:30; Stop 12/19/18 at 23:00 Vancomycin HCl 1.25 gm/Sodium Chloride 250 ml @ 83.333 mls/ hr Q24H IVPB ; Start 12/20/18 at 08:00 Allergies: Coded Allergies: No Known Allergy (Unverified , 07/07/15) Past Surgical History Past Surgical Hx: noncontributory Family History Significant Family History: no pertinent family hx Social History Alcohol Use: occasionally Smoking Status: Current every day smoker Drug Use: heroin, marijuana, other (IV heroin use) Other Social History Homeless Exam/Review of Systems Exam Vitals Vital Signs Date Temp Pulse Resp B/P (MAP) Pulse Ox O2 O2 Flow FiO2 Time Delivery Rate 12/19/18 99.3 102 20 149/71 97 20:00 (97) 12/19/18 Room Air 14:00 Exam General: Awake, alert, in no acute distress, pleasant and cooperative Heart: regular rhythm Lungs: breathing comfortably, no tachypnea or dyspnea MUSCULOSKELETAL: Right upper extremity: There is a large area of erythema and swelling with fluctuance over the bicep muscle. It is warm. It is tender to palpation. There is no tenderness to palpation to the elbow or shoulder. He has full range of motion of the elbow and shoulder. He has numerous small abscesses over the forearm that are in different stages of development and healing. Sensation is grossly intact to light touch in a median, ulnar, radial, and axillary distribution. Motor is intact in a median, ulnar, radial, anterior interosseous, and posterior interosseous nerve distribution. Radial and ulnar artery are +2. Wrist extension and flexion are intact. Compartments are soft. Results Result Diagram: 12/19/18 0633 12/19/18 0633 Results 24hrs Laboratory Tests Test 12/19/18 06:33 12/19/18 06:34 White Blood Count 14.6 #H Red Blood Count 4.04 L Hemoglobin 11.0 L Hematocrit 33.0 L Mean Corpuscular Volume 81.7 L Mean Corpuscular Hemoglobin 27.2 L Mean Corpuscular Hemoglobin Concent 33.3 Red Cell Distribution Width 13.9 Platelet Count 320 # Mean Platelet Volume 9.2 Immature Granulocytes % 0.400 Neutrophils % 73.6 Lymphocytes % 16.1 Monocytes % 8.6 Eosinophils % 1.0 Basophils % 0.3 Nucleated Red Blood Cells % 0.0 Immature Granulocytes # 0.060 H Neutrophils # 10.7 H Lymphocytes # 2.4 Monocytes # 1.3 H Eosinophils # 0.2 Basophils # 0.0 Nucleated Red Blood Cells # 0.0 Erythrocyte Sedimentation Rate 73 H Sodium Level 138 Potassium Level 4.2 Chloride Level 101 Carbon Dioxide Level 26 Anion Gap 11 Blood Urea Nitrogen 25 H Creatinine 0.95 Est Glomerular Filtrat Rate mL/min > 60 Glucose Level 99 Calcium Level 8.7 Magnesium Level 1.9 C-Reactive Protein 12.3 H Hepatitis B Surface Antigen NEGATIVE Hepatitis B Surface Antibody NEGATIVE Hepatitis C Antibody REACTIVE H Prothrombin Time 14.2 Prothrombin Time Ratio 1.1 INR International Normalized Ratio 1.09 Imaging Imaging 2 views of the right humerus personally reviewed: No fracture is appreciated. No retained needle. There is anterior soft tissue swelling. CT scan of the right upper extremity demonstrates significant soft tissue swelling and edema throughout the right upper extremity. There is an intramuscular abscess in the biceps. Medications Medication Current Medications Amlodipine Besylate (Norvasc) 10 mg DAILY PO Last administered on 12/19/18at 08:11; Admin Dose 10 MG; Start 12/19/18 at 09:00 Sodium Chloride 1,000 ml @ 100 mls/hr Q10H IV Last administered on 12/19/18at 17:27; Admin Dose 100 MLS/HR; Start 12/19/18 at 06:03 IV Flush (NS 3 ml) 3 ml PER PROTOCOL IV ; Start 12/19/18 at 06:30 Ondansetron HCl (Zofran Inj) 4 mg Q6H PRN IV NAUSEA/VOMITING; Start 12/19/18 at 06:30 Acetaminophen (Tylenol Tab) 650 mg Q6H PRN PO .PAIN 1-3 OR TEMP; Start 12/19/18 at 06:30 Docusate Sodium (Colace) 100 mg Q12H PRN PO .CONSTIPATION; Start 12/19/18 at 06:30 Bisacodyl (Dulcolax) 5 mg DAILY PRN PO .CONSTIPATION; Start 12/19/18 at 06:30 Hydralazine HCl (Apresoline) 10 mg Q4H PRN IV ELEVATED BLOOD PRESSURE Last administered on 12/19/18at 08:43; Admin Dose 10 MG; Start 12/19/18 at 08:00 Lisinopril (Zestril) 10 mg DAILY PO ; Start 12/20/18 at 09:00 Hydromorphone HCl (Dilaudid) 1 mg Q4H PRN IV .SEVERE PAIN 7-10 Last administered on 12/19/18at 19:59; Admin Dose 1 MG; Start 12/19/18 at 10:30 Guaifenesin/ Codeine Phosphate (Robitussin Ac Liquid Cup) 5 ml Q4H PRN PO COUGH Last administered on 12/19/18at 20:00; Admin Dose 5 ML; Start 12/19/18 at 18:00; Stop 12/20/18 at 17:59 Cefepime HCl 50 ml @ 100 mls/hr Q12 IVPB ; Start 12/19/18 at 21:00 Vancomycin HCl (Vanco Iv Per Pharmacy) VANCOMYCIN PER PHARMACY PER PROTOCOL XX ; Start 12/19/18 at 18:00 Vancomycin HCl 1.5 gm/Sodium Chloride 250 ml @ 83.333 mls/ hr NOW IVPB Last administered on 12/19/18at 18:59; Admin Dose 83.333 MLS/HR; Start 12/19/18 at 18:30; Stop 12/19/18 at 23:00 Vancomycin HCl 1.25 gm/Sodium Chloride 250 ml @ 83.333 mls/ hr Q24H IVPB ; Start 12/20/18 at 08:00 OMI BRISENO MD Dec 19, 2018 21:19
[2018-12-19] MEDS: CEFEPIME 1GM/50 ML (PMX) 50 ML IVPB SCH (22:18)
[2018-12-20] VITALS (17 sets, daily range): BP systolic 93–166; BP diastolic 48–95; PULSE 70–89; RESP 17–23
[2018-12-20] MEDS: HYDROmorphONE 1 MG/ML SYG IV PRN ×6 (00:47→21:34)
[2018-12-20] MEDS: SOD CHLORIDE 0.9% 1,000 ML IV SCH ×3 (06:45→17:11)
[2018-12-20] MEDS ORDERED: VANCOMYCIN HCL 1.25 GM in SOD CHLORIDE 0.9% 250 ML IVPB SCH ×2 (08:00→20:00)
[2018-12-20] MEDS: LISINOPRIL 10 MG TAB PO SCH (09:01)
[2018-12-20] MEDS: AMLODIPINE 10 MG TAB PO SCH (09:01)
[2018-12-20] MEDS: CEFEPIME 1GM/50 ML (PMX) 50 ML IVPB SCH ×2 (11:02→20:34)
--- NOTE | 2018-12-20 11:05 | PN ---
Date/Time of Note Date/Time of Note DATE: 12/20/18 TIME: 11:00 Assessment/Plan VTE Prophylaxis Risk score (from Ns)>0 risk: 1 SCD applied (from Ns): Yes Pharmacological prophylaxis: other Lines/Catheters IV Catheter Type [facility]from [facility] Saline Lock Urinary Cath still in place: No Assessment/Plan Hospital Course S: Patient has been n.p.o. since midnight and awaiting likely surgical procedure for later today. O: VS- see below PE: General: Patient is currently no acute distress HEENT: Atraumatic, normocephalic. The pupils are equal, round and reactive. Extraocular motor are intact Neck: Supple with full range of motion. No rigidity or meningismus Chest: Nontender Lungs: Clear to auscultation bilaterally no crackles rales or wheezing Heart: Normal S1-S2, Regular rhythm and rate. No murmur, S3, or S4 Abdomen: Soft , nontender, nondistended , bowel sounds are present. No guarding no rebound tenderness Extremities: Normal to inspection, no edema no cyanosis Skin: Right bicep: Does appear warm to touch, swollen, indurated. Left bicep: Warm to touch, swollen there does appear to be a wound opening with scant pus drainage noted. Multiple tattoos Neurologic: No focal deficits A/P: 53-year-old male being admitted to the [facility] floor for: #1 bilateral bicep abscesses: Secondary to IV drug use. He has an open abscess of the left bicep and a closed right abscess. X-ray of the right humerus showed soft tissue swelling. -Monitor, orthopedic surgeon consulted and planning for surgical procedure incision and drainage later today -follow-up postop recommendations -Continue current antibiotics per ID, provide pain control. Zofran for nausea. -Continue IV fluid hydration with normal saline. Trend ESR and CRP. #2 hypertension: Presently in the high normal range -For now continue lisinopril 10 mg p.o. daily, PRN hydralazine #3 history of IV drug use: Recently used heroin 1 day prior to admission. -Follow-up final results of hepatitis panel. PRN Ativan for withdrawal. -Counseled on drug cessation #4 leukocytosis: Likely secondary to underlying abscess. -Monitor, again patient will be going to the OR with orthopedic surgery. He will have cultures drawn. #5 microcytosis: Follow-up iron stores #6 DVT GI prophylaxis: SCDs, no GI prophylaxis indicated Result Diagram: 12/20/18 0820 12/20/18 0455 Results 24hrs Laboratory Tests Test 12/20/18 04:55 12/20/18 08:20 Sodium Level 138 Potassium Level 4.6 Chloride Level 105 Carbon Dioxide Level 26 Anion Gap 7 Blood Urea Nitrogen 17 Creatinine 0.81 Est Glomerular Filtrat Rate mL/min > 60 Glucose Level 92 Calcium Level 8.7 Magnesium Level 2.0 Total Bilirubin 0.4 Direct Bilirubin 0.00 Indirect Bilirubin 0.4 Aspartate Amino Transf (AST/SGOT) 27 Alanine Aminotransferase (ALT/SGPT) 19 Alkaline Phosphatase 62 C-Reactive Protein 14.6 H Total Protein 8.0 Albumin 3.5 Globulin 4.50 H Albumin/Globulin Ratio 0.77 Thyroid Stimulating Hormone (TSH) 1.440 White Blood Count 12.7 H Red Blood Count 4.22 L Hemoglobin 11.3 L Hematocrit 34.8 L Mean Corpuscular Volume 82.5 Mean Corpuscular Hemoglobin 26.8 L Mean Corpuscular Hemoglobin Concent 32.5 Red Cell Distribution Width 14.1 Platelet Count 352 Mean Platelet Volume 9.3 Immature Granulocytes % 0.400 Neutrophils % 79.7 H Lymphocytes % 10.5 L Monocytes % 7.1 Eosinophils % 2.1 Basophils % 0.2 Nucleated Red Blood Cells % 0.0 Immature Granulocytes # 0.050 H Neutrophils # 10.2 H Lymphocytes # 1.3 Monocytes # 0.9 Eosinophils # 0.3 Basophils # 0.0 Nucleated Red Blood Cells # 0.0 Erythrocyte Sedimentation Rate 93 H Hemoglobin A1c 4.9 Exam/Review of Systems Exam Vitals Vital Signs Date Temp Pulse Resp B/P (MAP) Pulse Ox O2 O2 Flow FiO2 Time Delivery Rate 12/20/18 98.9 78 153/95 95 Room Air 08:24 (114) 12/20/18 18 02:00 Intake and Output 12/19/18 12/19/18 12/20/18 1515:00 23:00 07:00 IntakeIntake Total 400 ml 2480 ml 1000 ml OutputOutput Total 300 ml 900 ml 1600 ml BalanceBalance 100 ml 1580 ml -600 ml Results Results 24hrs Laboratory Tests Test 12/20/18 04:55 12/20/18 08:20 Sodium Level 138 Potassium Level 4.6 Chloride Level 105 Carbon Dioxide Level 26 Anion Gap 7 Blood Urea Nitrogen 17 Creatinine 0.81 Est Glomerular Filtrat Rate mL/min > 60 Glucose Level 92 Calcium Level 8.7 Magnesium Level 2.0 Total Bilirubin 0.4 Direct Bilirubin 0.00 Indirect Bilirubin 0.4 Aspartate Amino Transf (AST/SGOT) 27 Alanine Aminotransferase (ALT/SGPT) 19 Alkaline Phosphatase 62 C-Reactive Protein 14.6 H Total Protein 8.0 Albumin 3.5 Globulin 4.50 H Albumin/Globulin Ratio 0.77 Thyroid Stimulating Hormone (TSH) 1.440 White Blood Count 12.7 H Red Blood Count 4.22 L Hemoglobin 11.3 L Hematocrit 34.8 L Mean Corpuscular Volume 82.5 Mean Corpuscular Hemoglobin 26.8 L Mean Corpuscular Hemoglobin Concent 32.5 Red Cell Distribution Width 14.1 Platelet Count 352 Mean Platelet Volume 9.3 Immature Granulocytes % 0.400 Neutrophils % 79.7 H Lymphocytes % 10.5 L Monocytes % 7.1 Eosinophils % 2.1 Basophils % 0.2 Nucleated Red Blood Cells % 0.0 Immature Granulocytes # 0.050 H Neutrophils # 10.2 H Lymphocytes # 1.3 Monocytes # 0.9 Eosinophils # 0.3 Basophils # 0.0 Nucleated Red Blood Cells # 0.0 Erythrocyte Sedimentation Rate 93 H Hemoglobin A1c 4.9 Medications Medication Current Medications Amlodipine Besylate (Norvasc) 10 mg DAILY PO Last administered on 12/20/18at 09:01; Admin Dose 10 MG; Start 12/19/18 at 09:00 Sodium Chloride 1,000 ml @ 100 mls/hr Q10H IV Last administered on 12/20/18at 06:45; Admin Dose 100 MLS/HR; Start 12/19/18 at 06:03 IV Flush (NS 3 ml) 3 ml PER PROTOCOL IV ; Start 12/19/18 at 06:30 Ondansetron HCl (Zofran Inj) 4 mg Q6H PRN IV NAUSEA/VOMITING; Start 12/19/18 at 06:30 Acetaminophen (Tylenol Tab) 650 mg Q6H PRN PO .PAIN 1-3 OR TEMP; Start 12/19/18 at 06:30 Docusate Sodium (Colace) 100 mg Q12H PRN PO .CONSTIPATION; Start 12/19/18 at 06:30 Bisacodyl (Dulcolax) 5 mg DAILY PRN PO .CONSTIPATION; Start 12/19/18 at 06:30 Hydralazine HCl (Apresoline) 10 mg Q4H PRN IV ELEVATED BLOOD PRESSURE Last administered on 12/19/18at 08:43; Admin Dose 10 MG; Start 12/19/18 at 08:00 Lisinopril (Zestril) 10 mg DAILY PO Last administered on 12/20/18at 09:01; Admin Dose 10 MG; Start 12/20/18 at 09:00 Hydromorphone HCl (Dilaudid) 1 mg Q4H PRN IV .SEVERE PAIN 7-10 Last administered on 12/20/18at 09:00; Admin Dose 1 MG; Start 12/19/18 at 10:30 Guaifenesin/ Codeine Phosphate (Robitussin Ac Liquid Cup) 5 ml Q4H PRN PO COUGH Last administered on 12/19/18at 20:00; Admin Dose 5 ML; Start 12/19/18 at 18:00; Stop 12/20/18 at 17:59 Cefepime HCl 50 ml @ 100 mls/hr Q12 IVPB Last administered on 12/19/18at 22:18; Admin Dose 100 MLS/HR; Start 12/19/18 at 21:00 Vancomycin HCl (Vanco Iv Per Pharmacy) VANCOMYCIN PER PHARMACY PER PROTOCOL XX ; Start 12/19/18 at 18:00 Vancomycin HCl 1.25 gm/Sodium Chloride 250 ml @ 83.333 mls/ hr Q12H IVPB ; Start 12/20/18 at 20:00 CHEIKH JIMENEZ Dec 20, 2018 11:05
--- NOTE | 2018-12-20 14:13 | PREAC ---
Date/Time of Note Date/Time of Note DATE: 12/20/18 TIME: 14:12 Anesthesia Eval and Record Evaluation Time Pre-Procedure Interview DATE: 12/20/18 TIME: 14:12 Age 53 Sex male NPO: 8 hrs Preoperative diagnosis Bicep abscess Planned procedure I&D bicep Past Medical History Past Medical History: Includes Cardio: HTN Hepatic: Alcohol abuse, Hepatitis, Other Recreational drugs: Heroin Surgery & Anesthesia Issues No known issue Meds Anticoagulation: No Beta Han within 24 hr: No Reason Beta Han not given: Pt. not on B-Han Active Scripts Hydrocodone/Acetaminophen (Treichlers 5-325 Tablet) 1 Each Tablet, 1 EACH PO Q4 for SEVERE PAIN LEVEL 7-10, #30 TAB Prov:EDWARD FRIEND 02/20/17 Sertraline Hcl* (Sertraline Hcl*) 50 Mg Tablet, 50 MG PO HS, #30 TAB Prov:EDWARD FRIEND 02/20/17 Amlodipine Besylate* (Amlodipine Besylate*) 10 Mg Tablet, 10 MG PO DAILY, #60 TAB Prov:EDWARD FRIEND 02/20/17 Current Medications Amlodipine Besylate (Norvasc) 10 mg DAILY PO Last administered on 12/20/18at 09:01; Admin Dose 10 MG; Start 12/19/18 at 09:00 Sodium Chloride 1,000 ml @ 100 mls/hr Q10H IV Last administered on 12/20/18at 06:45; Admin Dose 100 MLS/HR; Start 12/19/18 at 06:03 IV Flush (NS 3 ml) 3 ml PER PROTOCOL IV ; Start 12/19/18 at 06:30 Ondansetron HCl (Zofran Inj) 4 mg Q6H PRN IV NAUSEA/VOMITING; Start 12/19/18 at 06:30 Acetaminophen (Tylenol Tab) 650 mg Q6H PRN PO .PAIN 1-3 OR TEMP; Start 12/19/18 at 06:30 Docusate Sodium (Colace) 100 mg Q12H PRN PO .CONSTIPATION; Start 12/19/18 at 06:30 Bisacodyl (Dulcolax) 5 mg DAILY PRN PO .CONSTIPATION; Start 12/19/18 at 06:30 Hydralazine HCl (Apresoline) 10 mg Q4H PRN IV ELEVATED BLOOD PRESSURE Last administered on 12/19/18at 08:43; Admin Dose 10 MG; Start 12/19/18 at 08:00 Lisinopril (Zestril) 10 mg DAILY PO Last administered on 12/20/18at 09:01; Admin Dose 10 MG; Start 12/20/18 at 09:00 Hydromorphone HCl (Dilaudid) 1 mg Q4H PRN IV .SEVERE PAIN 7-10 Last adm inistered on 12/20/18at 13:23; Admin Dose 1 MG; Start 12/19/18 at 10:30 Guaifenesin/ Codeine Phosphate (Robitussin Ac Liquid Cup) 5 ml Q4H PRN PO COUGH Last administered on 12/19/18at 20:00; Admin Dose 5 ML; Start 12/19/18 at 18:00; Stop 12/20/18 at 17:59 Cefepime HCl 50 ml @ 100 mls/hr Q12 IVPB Last administered on 12/20/18at 11:02; Admin Dose 100 MLS/HR; Start 12/19/18 at 21:00 Vancomycin HCl (Vanco Iv Per Pharmacy) VANCOMYCIN PER PHARMACY PER PROTOCOL XX ; Start 12/19/18 at 18:00 Vancomycin HCl 1.25 gm/Sodium Chloride 250 ml @ 83.333 mls/ hr Q12H IVPB ; Start 12/20/18 at 20:00 Miscellaneous Information (*Rx Drug Level Order Reminder*) 1 0700 ONCE XX ; Start 12/21/18 at 07:00; Stop 12/21/18 at 07:01 Meds reviewed: Yes Allergies Coded Allergies: No Known Allergy (Unverified , 07/07/15) Allergies Reviewed: Yes Labs/Studies Labs Reviewed: Reviewed by anesthesiologist Result Diagram: 12/20/18 0820 12/20/18 0455 Laboratory Tests 12/20/18 04:55 12/20/18 08:20 test: N/A Studies: ECG Pre-procedure Exam Last vitals Vital Signs Date Temp Pulse Resp B/P (MAP) Pulse Ox O2 O2 Flow FiO2 Time Delivery Rate 12/20/18 76 142/88 11:13 (106) 12/20/18 98.9 95 Room Air 08:24 12/20/18 18 02:00 Airway: Adequate mouth opening, Adequate thyromental dist Mallampati: Mallampati II Teeth: Abnormal Lung: Normal Heart: Normal ASA Physical Status ASA physical status: 3 Emergency: E Planned Anesthetic General/MAC: ETT Pre-operative Attestations Prior to commencing anesthesia and surgery, the patient was re-evaluated, there was verification of: *The patient's identity *The results of appropriate recent lab work and preoperative vital signs *The above evaluation not changing prior to induction *Anesthetic plan, risk benefits, alternative and complications discussed with patient/family; questions answered; patient/family understands, accepts and wishes to proceed. KARLA SUTTON Dec 20, 2018 14:13
[2018-12-20] MEDS ORDERED: CEFAZOLIN 1 GM INJ ONE (14:25)
[2018-12-20] MEDS ORDERED: PROPOFOL 200 MG INJ ONE (14:25)
[2018-12-20] MEDS ORDERED: LIDOCAINE 100 MG SYRINGE ONE (14:25)
[2018-12-20] MEDS ORDERED: MIDAZOLAM 1 MG/ML 2 ML INJ ONE (14:25)
[2018-12-20] MEDS ORDERED: SUCCINYLCHOLINE CHLORIDE 100 MG/5 ML SYG IV ONE (14:25)
[2018-12-20] MEDS ORDERED: ROCURONIUM 50 MG INJ ONE (14:25)
[2018-12-20] MEDS ORDERED: FENTAnyl 50 MCG/ML VIAL ONE (14:25)
[2018-12-20] MEDS ORDERED: ALBUTEROL 0.083% (NEB) 2.5 MG/3 ML AMP HHN PRN (14:30)
[2018-12-20] MEDS ORDERED: hydrALAzine 20 MG INJ IV PRN (14:30)
[2018-12-20] MEDS ORDERED: MEPERIDINE 25 MG INJ IV PRN (14:30)
[2018-12-20] MEDS ORDERED: OXYCODONE/ACETAMINOPHEN (5/325) TAB PO PRN (14:30)
[2018-12-20] MEDS ORDERED: LABETALOL HCL 20MG INJ IV PRN (14:30)
[2018-12-20] MEDS ORDERED: METOCLOPRAMIDE 10 MG INJ IV PRN (14:30)
[2018-12-20] MEDS ORDERED: HYDROmorphONE 1 MG/5 ML IV SYRINGE IV PRN ×3 (14:30)
[2018-12-20] MEDS ORDERED: ONDANSETRON 4 MG INJ IV PRN (14:30)
[2018-12-20] MEDS ORDERED: DIPHENHYDRAMINE 50 MG INJ IV PRN (14:30)
[2018-12-20] MEDS ORDERED: FENTAnyl 50 MCG/ML VIAL IV PRN ×2 (14:30)
--- NOTE | 2018-12-20 14:55 | CONS ---
Assessment/Plan Assessment/Plan Hospital Course (Demo Recall) Alert looks comfortable no fevers overnight complaining of pain in his right upper extremity WBC 12.7 neutrophils 79.7 BUN 17 creatinine 0.81 Antimicrobials: Vancomycin, cefepime Physical examination: Well-nourished well-developed middle-aged white man who is alert in no distress. Head atraumatic normocephalic sclera nonicteric neck is supple chest rise symmetrical breath sounds clear heart: S1-S2. Abdomen soft bowel sounds present. Extremities with left upper extremity and dry wound on the bicep area, right upper extremity with significant erythema induration over the right bicep area and forearm also covered with dressing Assessment: 1. Right upper extremity cellulitis with intramuscular bicep abscess 2. Polysubstance abuse 3. Hepatitis C positive 4. Hypertension Plan: Patient is scheduled for surgical intervention today continue antibiotics, check HIV serology, consider GI evaluation Consultation Date/Type/Reason Admit Date/Time Dec 19, 2018 at 06:00 Initial Consult Date 12/19/18 Type of Consult id Date/Time of Note DATE: 12/20/18 TIME: 14:55 Exam/Review of Systems Exam Vitals Vital Signs Date Temp Pulse Resp B/P (MAP) Pulse Ox O2 O2 Flow FiO2 Time Delivery Rate 12/20/18 76 142/88 11:13 (106) 12/20/18 98.9 95 Room Air 08:24 12/20/18 18 02:00 Intake and Output 12/19/18 12/19/18 12/20/18 1515:00 23:00 07:00 IntakeIntake Total 400 ml 2480 ml 1000 ml OutputOutput Total 300 ml 900 ml 1600 ml BalanceBalance 100 ml 1580 ml -600 ml Results Result Diagram: 12/20/18 0820 12/20/18 0455 Results 24hrs Laboratory Tests Test 12/20/18 04:55 12/20/18 08:20 Sodium Level 138 Potassium Level 4.6 Chloride Level 105 Carbon Dioxide Level 26 Anion Gap 7 Blood Urea Nitrogen 17 Creatinine 0.81 Est Glomerular Filtrat Rate mL/min > 60 Glucose Level 92 Calcium Level 8.7 Magnesium Level 2.0 Total Bilirubin 0.4 Direct Bilirubin 0.00 Indirect Bilirubin 0.4 Aspartate Amino Transf (AST/SGOT) 27 Alanine Aminotransferase (ALT/SGPT) 19 Alkaline Phosphatase 62 C-Reactive Protein 14.6 H Total Protein 8.0 Albumin 3.5 Globulin 4.50 H Albumin/Globulin Ratio 0.77 Thyroid Stimulating Hormone (TSH) 1.440 White Blood Count 12.7 H Red Blood Count 4.22 L Hemoglobin 11.3 L Hematocrit 34.8 L Mean Corpuscular Volume 82.5 Mean Corpuscular Hemoglobin 26.8 L Mean Corpuscular Hemoglobin Concent 32.5 Red Cell Distribution Width 14.1 Platelet Count 352 Mean Platelet Volume 9.3 Immature Granulocytes % 0.400 Neutrophils % 79.7 H Lymphocytes % 10.5 L Monocytes % 7.1 Eosinophils % 2.1 Basophils % 0.2 Nucleated Red Blood Cells % 0.0 Immature Granulocytes # 0.050 H Neutrophils # 10.2 H Lymphocytes # 1.3 Monocytes # 0.9 Eosinophils # 0.3 Basophils # 0.0 Nucleated Red Blood Cells # 0.0 Erythrocyte Sedimentation Rate 93 H Hemoglobin A1c 4.9 Medications Medication Current Medications Amlodipine Besylate (Norvasc) 10 mg DAILY PO Last administered on 12/20/18at 09:01; Admin Dose 10 MG; Start 12/19/18 at 09:00 Sodium Chloride 1,000 ml @ 100 mls/hr Q10H IV Last administered on 12/20/18at 06:45; Admin Dose 100 MLS/HR; Start 12/19/18 at 06:03 IV Flush (NS 3 ml) 3 ml PER PROTOCOL IV ; Start 12/19/18 at 06:30 Ondansetron HCl (Zofran Inj) 4 mg Q6H PRN IV NAUSEA/VOMITING; Start 12/19/18 at 06:30 Acetaminophen (Tylenol Tab) 650 mg Q6H PRN PO .PAIN 1-3 OR TEMP; Start 12/19/18 at 06:30 Docusate Sodium (Colace) 100 mg Q12H PRN PO .CONSTIPATION; Start 12/19/18 at 06:30 Bisacodyl (Dulcolax) 5 mg DAILY PRN PO .CONSTIPATION; Start 12/19/18 at 06:30 Hydralazine HCl (Apresoline) 10 mg Q4H PRN IV ELEVATED BLOOD PRESSURE Last administered on 12/19/18at 08:43; Admin Dose 10 MG; Start 12/19/18 at 08:00 Lisinopril (Zestril) 10 mg DAILY PO Last administered on 12/20/18at 09:01; Admin Dose 10 MG; Start 12/20/18 at 09:00 Hydromorphone HCl (Dilaudid) 1 mg Q4H PRN IV .SEVERE PAIN 7-10 Last administered on 12/20/18at 13:23; Admin Dose 1 MG; Start 12/19/18 at 10:30 Guaifenesin/ Codeine Phosphate (Robitussin Ac Liquid Cup) 5 ml Q4H PRN PO COUGH Last administered on 12/19/18at 20:00; Admin Dose 5 ML; Start 12/19/18 at 18:00; Stop 12/20/18 at 17:59 Cefepime HCl 50 ml @ 100 mls/hr Q12 IVPB Last administered on 12/20/18at 11:02; Admin Dose 100 MLS/HR; Start 12/19/18 at 21:00 Vancomycin HCl (Vanco Iv Per Pharmacy) VANCOMYCIN PER PHARMACY PER PROTOCOL XX ; Start 12/19/18 at 18:00 Vancomycin HCl 1.25 gm/Sodium Chloride 250 ml @ 83.333 mls/ hr Q12H IVPB ; Start 12/20/18 at 20:00 Miscellaneous Information (*Rx Drug Level Order Reminder*) 1 0700 ONCE XX ; Start 12/21/18 at 07:00; Stop 12/21/18 at 07:01 Hydromorphone HCl (Dilaudid) 0.2 mg PACU PRN IV MILD PAIN 1-3; Start 12/20/18 at 14:30; Stop 12/20/18 at 21:00 Hydromorphone HCl (Dilaudid) 0.4 mg PACU PRN IV MOD PAIN 4-6; Start 12/20/18 at 14:30; Stop 12/20/18 at 21:00 Hydromorphone HCl (Dilaudid) 0.6 mg PACU PRN IV SEVERE PAIN 7-10; Start 12/20/18 at 14:30; Stop 12/20/18 at 21:00 Fentanyl (Sublimaze) 25 mcg PACU ORDER PRN IV MILD PAIN 1-3; Start 12/20/18 at 14:30; Stop 12/20/18 at 21:00 Fentanyl (Sublimaze) 50 mcg PACU ORDER PRN IV MOD PAIN 4-6; Start 12/20/18 at 14:30; Stop 12/20/18 at 21:00 Oxycodone/ Acetaminophen (Percocet (5/ 325)) 1 tab PACU ORDER PRN PO .PAIN 1-5; Start 12/20/18 at 14:30; Stop 12/20/18 at 21:00 Ondansetron HCl (Zofran Inj) 4 mg PACU ORDER PRN IV NAUSEA/VOMITING; Start 12/20/18 at 14:30; Stop 12/20/18 at 21:00 Metoclopramide HCl (Reglan) 10 mg PACU ORDER PRN IV NAUSEA/VOMITING; Start 12/20/18 at 14:30; Stop 12/20/18 at 21:00 Labetalol HCl (Labetalol) 5 mg PACU ORDER PRN IV HIGH BLOOD PRESSURE; Start 12/20/18 at 14:30; Stop 12/20/18 at 21:00 Hydralazine HCl (Apresoline) 5 mg PACU ORDER PRN IV HIGH BLOOD PRESSURE; Start 12/20/18 at 14:30; Stop 12/20/18 at 21:00 Albuterol (Proventil 0.083% (Neb)) 2.5 mg PACU ORDER PRN HHN .WHEEZING; Start 12/20/18 at 14:30; Stop 12/20/18 at 21:00 Meperidine HCl (Demerol) 25 mg PACU ORDER PRN IV .RIGORS; Start 12/20/18 at 14:30; Stop 12/20/18 at 21:00 Diphenhydramine HCl (Benadryl) 25 mg PACU ORDER PRN IV .PRURITUS; Start 12/20/18 at 14:30; Stop 12/20/18 at 21:00 SÁNCHEZ SCHROEDER NP Dec 20, 2018 14:55
[2018-12-20] MEDS ORDERED: POLYMYXIN/BACITRACIN 1L IRRIG IRR ONE (15:00)
[2018-12-20] MEDS ORDERED: SUGAMMADEX SODIUM 200 MG/2 ML VIAL IV ONE (15:30)
--- NOTE | 2018-12-20 16:00 | OPR ---
Date/Time of Note Date/Time of Note DATE: 12/20/18 TIME: 15:49 Operative Report Procedure Date: Dec 20, 2018 Preoperative Diagnosis right intramuscular biceps abscess Postoperative Diagnosis As above Operation/Procedure Performed Irrigation and debridement right biceps 12x5 cm2 subcutaneous tissue, fascia, muscle. Debridement was excisional and abrasive. Irrigation debridement to superficial wounds over the forearm 2 x 2 centimeter squared down to the skin. Surgeon see signature line Rn Visiting None Anesthesia Type: general Estimated Blood Loss: minimal Transfusion none Specimen Right biceps abscess fluid for aerobic, anaerobic, fungal culture Grafts/Implants none Complications none Pt Condition Post Procedure: stable Disposition: PACU Procedure Description 53-year-old male with history of polysubstance abuse including IV drug abuse presents the emergency department with a deep intramuscular right biceps abscess. Given the size and depth of the abscess I did recommend patient undergo irrigation debridement in the operating room. Patient did not have any signs of sepsis or necrotizing fasciitis. I reviewed the benefits and risks the patient including but not limited to neurovascular injury, failure to cure infection, repeat infection, wound complications, need for further surgery. He understood these and wished to proceed with surgery. Procedure in detail: Patient brought to the operating room. He was transferred to the hospital bed to the operating table. He was given general anesthesia. All bony problems well-padded. The right upper extremity was prepped and draped in normal sterile fashion. A timeout was performed confirming patient's name medical record number diagnosis procedure performed and laterality procedure. 2 g of Ancef were dosed. At this time a 12 cm longitudinal incision over the biceps was made with a #10 blade. Once through the skin a Bovie was used to dissect down through the subcutaneous tissue. At this time the abscess was encountered. The abscess continued into the deep intramuscular area of the biceps muscle. About 50 to 70 mL of purulent material was expressed and drained. The biceps and subcutaneous tissue were then cleaned and debrided with a combination of curettes and lap sponges. The subcutaneous tissue was undermined medially almost completely posterior humerus. About 4-1/2 to 5 L of normal saline was used for irrigation with cystoscopy tubing. The wound was then clean. At this time a medium Hemovac drain was placed. The subcutaneous and skin were closed with interrupted Prolene sutures. Attention turned towards 2 small superficial wounds over the forearm. These were approximately 2 x 2 cm each. These were debrided with a curette down to the subcutaneous layer. All wounds were dressed with Xeroform 4 x 4's ABDs and Kerlix roll. All counts were correct x2 Disposition: Patient was awoken from anesthesia and transferred to PACU in stable condition. He will continue IV antibiotics. Antibiotics will be tailored to cultures. Dressing changes will begin on postop day #2. The Hemovac drain will be DC'd when less than 30 mL and 24 hours. OMI BRISENO MD Dec 20, 2018 15:59
[2018-12-21] MEDS: HYDROmorphONE 1 MG/ML SYG IV PRN ×4 (01:48→23:18)
[2018-12-21 02:00] VITALS: BP 138/85; PULSE 87; RESP 18
[2018-12-21] MEDS: SOD CHLORIDE 0.9% 1,000 ML IV SCH ×2 (06:03→17:44)
[2018-12-21 08:10] VITALS: BP 134/80; PULSE 82; RESP 18
[2018-12-21] MEDS: LISINOPRIL 10 MG TAB PO SCH (08:51)
[2018-12-21] MEDS: AMLODIPINE 10 MG TAB PO SCH (08:52)
[2018-12-21] MEDS: NICOTINE (14 MG/24 HR) PATCH TRANSDERM SCH (09:09)
[2018-12-21] MEDS: HYDROCODONE/APAP (5/325) TAB PO PRN ×2 (11:24→17:45)
--- NOTE | 2018-12-21 13:02 | PN ---
Date/Time of Note Date/Time of Note DATE: 12/21/18 TIME: 13:02 Assessment/Plan VTE Prophylaxis Risk score (from Nsg)>0 risk: 3 SCD applied (from Nsg): Yes Pharmacological prophylaxis: NA/contraindicated Pharm contraindication: low risk/ambulating Lines/Catheters IV Catheter Type (from Nrsg): Peripheral IV Urinary Cath still in place: No Assessment/Plan Hospital Course SUBJECTIVE: Asking to increase the pain medicine. OBJECTIVE: Physical Exam General: Adequately build 53 year-old male lying in bed in no apparent distress. HEENT: Normocephalic, atraumatic. Eyes: Anicteric sclerae, conjunctivae clear. ENT: Nasal septum midline, oral mucosa moist. Neck supple, no JVD noticed. Respiratory: Bilaterally diminished breath sounds. No use of accessory muscles of respiration. No adventitious breath sounds. Cardiovascular: S1, S2 heard. Regular rate and rhythm. Abdomen: Soft, nontender, and nondistended. Bowel sounds positive in all 4 quadrants. Genitourinary: Deferred. Extremities: No cyanosis, no clubbing, no edema. Right upper extremity surgical dressing. Peripheral pulses palpable. Neurologic: Cranial nerves II through XII grossly intact. The patient is awake, alert, and oriented. Skin: Multiple skin tattoos. Labs & Vitals per chart ASSESSMENT & PLAN 53-year-old male with past medical history of hypertension and polysubstance abuse who presented to the emergency room with chief complaint of bilateral upper extremity erythematous lesions with CT scan showing intramuscular abscess in the biceps, who was admitted to inpatient setting for further treatment and evaluation. 1. Right biceps abscess. Status post irrigation and debridement of right biceps on 12/20/2018. Continue antimicrobials as per ID. Continue local wound care. 2. Hypertension. Continue lisinopril. 3. Nicotine use. Continue nicotine patch. 4. Substance abuse. Cessation advised. 5. Normocytic anemia. Monitor H&H closely. 6. Fluids, electrolytes, and nutrition. Regular diet. 7. DVT prophylaxis. Bilateral SCDs. 8. Plan. Continue antimicrobials as per ID. Await clinical improvement. The patient was seen in collaboration with Dr. Henriquez. Result Diagram: 12/21/18 0710 12/21/18 0710 Results 24hrs Laboratory Tests Test 12/21/18 07:10 White Blood Count 8.2 # Red Blood Count 4.05 L Hemoglobin 11.0 L Hematocrit 33.9 L Mean Corpuscular Volume 83.7 Mean Corpuscular Hemoglobin 27.2 L Mean Corpuscular Hemoglobin Concent 32.4 Red Cell Distribution Width 13.9 Platelet Count 337 Mean Platelet Volume 8.8 Immature Granulocytes % 0.400 Neutrophils % 67.2 Lymphocytes % 19.0 Monocytes % 7.1 Eosinophils % 5.9 Basophils % 0.4 Nucleated Red Blood Cells % 0.0 Immature Granulocytes # 0.030 Neutrophils # 5.5 Lymphocytes # 1.6 Monocytes # 0.6 Eosinophils # 0.5 Basophils # 0.0 Nucleated Red Blood Cells # 0.0 Sodium Level 141 Potassium Level 4.2 Chloride Level 107 Carbon Dioxide Level 24 Anion Gap 10 Blood Urea Nitrogen 13 Creatinine 0.77 Est Glomerular Filtrat Rate mL/min > 60 Glucose Level 142 # Calcium Level 8.5 Phosphorus Level 3.4 Magnesium Level 1.9 Vancomycin Level Trough 10.9 Exam/Review of Systems Exam Vitals Vital Signs Date Temp Pulse Resp B/P (MAP) Pulse Ox O2 O2 Flow FiO2 Time Delivery Rate 12/21/18 98.0 82 18 134/80 99 08:10 (98) 12/20/18 Room Air 16:59 12/20/18 6.0 16:06 Intake and Output 12/20/18 12/20/18 12/21/18 1515:00 23:00 07:00 IntakeIntake Total 1100 ml 960 ml 1580 ml OutputOutput Total 800 ml 805 ml 1720 ml BalanceBalance 300 ml 155 ml -140 ml Results Results 24hrs Laboratory Tests Test 12/21/18 07:10 White Blood Count 8.2 # Red Blood Count 4.05 L Hemoglobin 11.0 L Hematocrit 33.9 L Mean Corpuscular Volume 83.7 Mean Corpuscular Hemoglobin 27.2 L Mean Corpuscular Hemoglobin Concent 32.4 Red Cell Distribution Width 13.9 Platelet Count 337 Mean Platelet Volume 8.8 Immature Granulocytes % 0.400 Neutrophils % 67.2 Lymphocytes % 19.0 Monocytes % 7.1 Eosinophils % 5.9 Basophils % 0.4 Nucleated Red Blood Cells % 0.0 Immature Granulocytes # 0.030 Neutrophils # 5.5 Lymphocytes # 1.6 Monocytes # 0.6 Eosinophils # 0.5 Basophils # 0.0 Nucleated Red Blood Cells # 0.0 Sodium Level 141 Potassium Level 4.2 Chloride Level 107 Carbon Dioxide Level 24 Anion Gap 10 Blood Urea Nitrogen 13 Creatinine 0.77 Est Glomerular Filtrat Rate mL/min > 60 Glucose Level 142 # Calcium Level 8.5 Phosphorus Level 3.4 Magnesium Level 1.9 Vancomycin Level Trough 10.9 Medications Medication Current Medications Amlodipine Besylate (Norvasc) 10 mg DAILY PO Last administered on 12/21/18 08:52; Admin Dose 10 MG; Start 12/19/18 at 09:00 Sodium Chloride 1,000 ml @ 100 mls/hr Q10H IV Last administered on 12/21/18at 06:03; Admin Dose 100 MLS/HR; Start 12/19/18 at 06:03 IV Flush (NS 3 ml) 3 ml PER PROTOCOL IV ; Start 12/19/18 at 06:30 Ondansetron HCl (Zofran Inj) 4 mg Q6H PRN IV NAUSEA/VOMITING; Start 12/19/18 at 06:30 Acetaminophen (Tylenol Tab) 650 mg Q6H PRN PO .PAIN 1-3 OR TEMP; Start 12/19/18 at 06:30 Docusate Sodium (Colace) 100 mg Q12H PRN PO .CONSTIPATION; Start 12/19/18 at 06:30 Bisacodyl (Dulcolax) 5 mg DAILY PRN PO .CONSTIPATION; Start 12/19/18 at 06:30 Hydralazine HCl (Apresoline) 10 mg Q4H PRN IV ELEVATED BLOOD PRESSURE Last administered on 12/19/18at 08:43; Admin Dose 10 MG; Start 12/19/18 at 08:00 Lisinopril (Zestril) 10 mg DAILY PO Last administered on 12/21/18at 08:51; Admin Dose 10 MG; Start 12/20/18 at 09:00 Hydromorphone HCl (Dilaudid) 1 mg Q4H PRN IV .SEVERE PAIN 7-10 Last administe red on 12/21/18at 06:03; Admin Dose 1 MG; Start 12/19/18 at 10:30 Cefepime HCl 50 ml @ 100 mls/hr Q12 IVPB Last administered on 12/20/18at 20:34; Admin Dose 100 MLS/HR; Start 12/19/18 at 21:00 Vancomycin HCl (Vanco Iv Per Pharmacy) VANCOMYCIN PER PHARMACY PER PROTOCOL XX ; Start 12/19/18 at 18:00 Nicotine (Nicoderm 14 Mg/ 24hr) 1 patch DAILY TRANSDERM Last administered on 12/21/18at 09:09; Admin Dose 1 PATCH; Start 12/21/18 at 09:00 Vancomycin HCl 1.5 gm/Sodium Chloride 250 ml @ 83.333 mls/ hr Q12H IVPB ; Start 12/21/18 at 20:00 Acetaminophen/ Hydrocodone Bitart ([place] (5/325)) 1 tab Q6H PRN PO MODERATE PAIN LEVEL 4-6 Last administered on 12/21/18at 11:24; Admin Dose 1 TAB; Start 12/21/18 at 11:30 NELLY SAUCEDO NP Dec 21, 2018 13:02
[2018-12-21] MEDS: CEFEPIME 1GM/50 ML (PMX) 50 ML IVPB SCH ×2 (15:11→20:31)
[2018-12-21 15:30] VITALS: BP 130/78; PULSE 75; RESP 18
--- NOTE | 2018-12-21 17:40 | CONS ---
Consultation Date/Type/Reason Admit Date/Time Dec 19, 2018 at 06:00 Initial Consult Date SUBJECTIVE: Pt is awake, alert, looks comfortable, no fevers. S/P RT bicep wound debridement. VS: stable T: 98.1 LABS: Reviewed. WBC- 8.2--Improving MICROBILOGY: FUNGAL CULTURE Preliminary MYCOLOGY CULTURES ARE HELD 4 TO 6 WEEKS. ANY SIGNIFICANT GROWTH WILL BE REPORTED WHEN DETECTED. INTERIM REPORTS ARE NOT ISSUED. GRAM STAIN Final POLYMORPH. LEUKOCYTE RARE GRAM POS COCCI IN PAIRS 1+ WOUND CULTURE Preliminary Organism 1 STREP PYOGENES (GRP A) QUANTITY 1+ Antimicrobials: Vancomycin, cefepime Physical examination: GEN: Well-nourished well-developed middle-aged white man, who is alert in no distress. HENT: Head atraumatic normocephalic, sclera nonicteric, neck is supple PULM: chest rise symmetrical breath sounds clear Heart: S1-S2. Abdomen: soft, bowel sounds present. Extremities with left upper extremity and wound on the bicep area, right upper e xtremity with significant erythema induration over the right bicep area and forearm also covered with dressing Assessment: 1. Right upper extremity cellulitis with intramuscular bicep abscess-S/P d ebridement 12/20/18. 2. Polysubstance abuse 3. Hepatitis C positive 4. Hypertension Plan: Patient is stable. Recovering well. Continue current antibiotics. Final wound Cx intra-op pending. HIV serology pending. Pain management. Date/Time of Note DATE: 12/21/18 TIME: 17:34 Exam/Review of Systems Exam Vitals Vital Signs Date Temp Pulse Resp B/P (MAP) Pulse Ox O2 O2 Flow FiO2 Time Delivery Rate 12/21/18 98.1 75 18 130/78 97 15:30 (95) 12/20/18 Room Air 16:59 12/20/18 6.0 16:06 Intake and Output 12/20/18 12/20/18 12/21/18 1515:00 23:00 07:00 IntakeIntake Total 1100 ml 960 ml 1580 ml OutputOutput Total 800 ml 805 ml 1720 ml BalanceBalance 300 ml 155 ml -140 ml Results Result Diagram: 12/21/18 0710 12/21/18 0710 Results 24hrs Laboratory Tests Test 12/21/18 07:10 White Blood Count 8.2 # Red Blood Count 4.05 L Hemoglobin 11.0 L Hematocrit 33.9 L Mean Corpuscular Volume 83.7 Mean Corpuscular Hemoglobin 27.2 L Mean Corpuscular Hemoglobin Concent 32.4 Red Cell Distribution Width 13.9 Platelet Count 337 Mean Platelet Volume 8.8 Immature Granulocytes % 0.400 Neutrophils % 67.2 Lymphocytes % 19.0 Monocytes % 7.1 Eosinophils % 5.9 Basophils % 0.4 Nucleated Red Blood Cells % 0.0 Immature Granulocytes # 0.030 Neutrophils # 5.5 Lymphocytes # 1.6 Monocytes # 0.6 Eosinophils # 0.5 Basophils # 0.0 Nucleated Red Blood Cells # 0.0 Sodium Level 141 Potassium Level 4.2 Chloride Level 107 Carbon Dioxide Level 24 Anion Gap 10 Blood Urea Nitrogen 13 Creatinine 0.77 Est Glomerular Filtrat Rate mL/min > 60 Glucose Level 142 # Calcium Level 8.5 Phosphorus Level 3.4 Magnesium Level 1.9 Vancomycin Level Trough 10.9 Medications Medication Current Medications Amlodipine Besylate (Norvasc) 10 mg DAILY PO Last administered on 12/21/18at 08:52; Admin Dose 10 MG; Start 12/19/18 at 09:00 Sodium Chloride 1,000 ml @ 100 mls/hr Q10H IV Last administered on 12/21/18at 06:03; Admin Dose 100 MLS/HR; Start 12/19/18 at 06:03 IV Flush (NS 3 ml) 3 ml PER PROTOCOL IV ; Start 12/19/18 at 06:30 Ondansetron HCl (Zofran Inj) 4 mg Q6H PRN IV NAUSEA/VOMITING; Start 12/19/18 at 06:30 Acetaminophen (Tylenol Tab) 650 mg Q6H PRN PO .PAIN 1-3 OR TEMP; Start 12/19/18 at 06:30 Docusate Sodium (Colace) 100 mg Q12H PRN PO .CONSTIPATION; Start 12/19/18 at 06:30 Bisacodyl (Dulcolax) 5 mg DAILY PRN PO .CONSTIPATION; Start 12/19/18 at 06:30 Hydralazine HCl (Apresoline) 10 mg Q4H PRN IV ELEVATED BLOOD PRESSURE Last ad ministered on 12/19/18at 08:43; Admin Dose 10 MG; Start 12/19/18 at 08:00 Lisinopril (Zestril) 10 mg DAILY PO Last administered on 12/21/18at 08:51; Admin Dose 10 MG; Start 12/20/18 at 09:00 Hydromorphone HCl (Dilaudid) 1 mg Q4H PRN IV .SEVERE PAIN 7-10 Last administered on 12/21/18 06:03; Admin Dose 1 MG; Start 12/19/18 at 10:30 Cefepime HCl 50 ml @ 100 mls/hr Q12 IVPB Last administered on 12/20/18 20:34; Admin Dose 100 MLS/HR; Start 12/19/18 at 21:00 Vancomycin HCl (Vanco Iv Per Pharmacy) VANCOMYCIN PER PHARMACY PER PROTOCOL XX ; Start 12/19/18 at 18:00 Nicotine (Nicoderm 14 Mg/ 24hr) 1 patch DAILY TRANSDERM Last administered on 12/21/18 09:09; Admin Dose 1 PATCH; Start 12/21/18 at 09:00 Vancomycin HCl 1.5 gm/Sodium Chloride 250 ml @ 83.333 mls/ hr Q12H IVPB ; Start 12/21/18 at 20:00 Acetaminophen/ Hydrocodone Bitart ([place] (5/325)) 1 tab Q6H PRN PO MODERATE PAIN LEVEL 4-6 Last administered on 12/21/18at 11:24; Admin Dose 1 TAB; Start 12/21/18 at 11:30 NADEEM HOLLOWAY Dec 21, 2018 17:40
[2018-12-21 20:42] VITALS: BP 155/73; PULSE 72; RESP 18
[2018-12-21] MEDS: VANCOMYCIN HCL 1.5 GM in SOD CHLORIDE 0.9% 250 ML IVPB SCH (21:10)
[2018-12-22 02:28] VITALS: BP 166/82; PULSE 64; RESP 18
[2018-12-22] MEDS: HYDROmorphONE 1 MG/ML SYG IV PRN ×5 (03:22→20:37)
[2018-12-22 03:30] VITALS: BP 145/76
[2018-12-22 07:28] VITALS: BP 138/85; PULSE 68; RESP 16
[2018-12-22] MEDS: VANCOMYCIN HCL 1.5 GM in SOD CHLORIDE 0.9% 250 ML IVPB SCH ×2 (08:06→20:37)
[2018-12-22] MEDS: LISINOPRIL 10 MG TAB PO SCH (09:04)
[2018-12-22] MEDS: AMLODIPINE 10 MG TAB PO SCH (09:04)
[2018-12-22] MEDS: NICOTINE (14 MG/24 HR) PATCH TRANSDERM SCH (09:05)
--- NOTE | 2018-12-22 09:39 | PN ---
Date/Time of Note Date/Time of Note DATE: 12/22/18 TIME: 09:37 Assessment/Plan Lines/Catheters IV Catheter Type (from Nrsg): Mid Line [place] in Place (from Nrsg): No Assessment/Plan Chief Complaint/Hosp Course 53-year-old male postop day #2 status post I&D of right biceps for intramuscular abscess. His Hemovac drain was inadvertently pulled out postop day #1 the patient stated he got snagged. He lost IV access yesterday and did not receive all his antibiotics. A midline was now placed and he is now receiving antibiotic's. Cultures are preliminary. Currently growing strep biology knees. Continue IV antibiotics per infectious disease recommendation Dry dressings to right upper extremity. Recommend wound care nurse for local wound care to left upper extremity superficial wounds Pain control. Encourage orals over IV Subjective 24 Hr Interval Summary Patient doing well No acute events overnight Pain is well controlled Exam/Review of Systems Vital Signs Vitals Vital Signs Date Temp Pulse Resp B/P (MAP) Pulse Ox O2 O2 Flow FiO2 Time Delivery Rate 12/22/18 98.1 68 16 138/85 94 Room Air 07:28 (102) 12/20/18 6.0 16:06 Intake and Output 12/21/18 12/21/18 12/22/18 1515:00 23:00 07:00 IntakeIntake Total 240 ml 600 ml 880 ml OutputOutput Total 1210 ml 640 ml 700 ml BalanceBalance -970 ml -40 ml 180 ml Exam Free Text/Dictation General: Awake, alert, in no acute distress, pleasant and cooperative Heart: regular rhythm Lungs: breathing comfortably, no tachypnea or dyspnea MUSCULOSKELETAL: Right upper extremity: Incision is clean, dry, intact. There is decreased erythema. There is no fluctuance. There is no tenderness to palpation. Sensation intact to light touch in a median, ulnar, radial, and axillary distribution. Motor is intact in a median, ulnar, radial, anterior interosseous, and posterior interosseous nerve distribution. Radial and ulnar artery are +2. Wrist extension and flexion are intact. Compartments are soft. Results Result Diagram: 12/22/18 0600 12/22/18 06 OMI BRISENO MD Dec 22, 2018 09:39
[2018-12-22] MEDS: CEFEPIME 1GM/50 ML (PMX) 50 ML IVPB SCH ×2 (11:26→20:00)
--- NOTE | 2018-12-22 12:21 | PN ---
Date/Time of Note Date/Time of Note DATE: 12/22/18 TIME: 12:20 Assessment/Plan VTE Prophylaxis Risk score (from Nsg)>0 risk: 3 SCD applied (from Nsg): Yes Pharmacological prophylaxis: NA/contraindicated Pharm contraindication: low risk/ambulating Lines/Catheters IV Catheter Type (from Nrsg): Mid Line Urinary Cath still in place: No Assessment/Plan Hospital Course SUBJECTIVE: Remains afebrile. RUE wound vac was removed today. OBJECTIVE: Physical Exam General: Adequately build 53 year-old male lying in bed in no apparent distress. HEENT: Normocephalic, atraumatic. Eyes: Anicteric sclerae, conjunctivae clear. ENT: Nasal septum midline, oral mucosa moist. Neck supple, no JVD noticed. Respiratory: Bilaterally diminished breath sounds. No use of accessory muscles of respiration. No adventitious breath sounds. Cardiovascular: S1, S2 heard. Regular rate and rhythm. Abdomen: Soft, nontender, and nondistended. Bowel sounds positive in all 4 quadrants. Genitourinary: Deferred. Extremities: No cyanosis, no clubbing, no edema. Right upper extremity dressing. LUE multiple multiple wounds. Peripheral pulses palpable. Neurologic: Cranial nerves II through XII grossly intact. The patient is awake, alert, and oriented. Skin: Multiple skin tattoos. Labs & Vitals per chart ASSESSMENT & PLAN 53-year-old male with past medical history of hypertension and polysubstance abuse who presented to the emergency room with chief complaint of bilateral upper extremity erythematous lesions with CT scan showing intramuscular abscess in the biceps, who was admitted to inpatient setting for further treatment and evaluation. 1. Right biceps abscess. Status post irrigation and debridement of right biceps on 12/20/2018. Continue antimicrobials as per ID. Continue local wound care. 2. LUE wounds. Management as per wound care. 3. Hypertension. Continue lisinopril. 4. Nicotine use. Continue nicotine patch. 5. Substance abuse. Cessation advised. 6. Normocytic anemia. Monitor H&H closely. 7. Fluids, electrolytes, and nutrition. Regular diet. 8. DVT prophylaxis. Bilateral SCDs. 9. Plan. Continue antimicrobials as per ID. Await clinical improvement. The patient was seen in collaboration with Dr. Henriquez. Result Diagram: 12/22/18 0600 12/22/18 0600 Results 24hrs Laboratory Tests Test 12/22/18 06:00 White Blood Count 6.4 # Red Blood Count 4.21 L Hemoglobin 11.3 L Hematocrit 35.1 L Mean Corpuscular Volume 83.4 Mean Corpuscular Hemoglobin 26.8 L Mean Corpuscular Hemoglobin Concent 32.2 Red Cell Distribution Width 13.7 Platelet Count 412 # Mean Platelet Volume 8.8 Immature Granulocytes % 0.500 H Neutrophils % 50.3 Lymphocytes % 31.1 Monocytes % 8.2 Eosinophils % 9.3 H Basophils % 0.6 Nucleated Red Blood Cells % 0.0 Immature Granulocytes # 0.030 Neutrophils # 3.2 Lymphocytes # 2.0 Monocytes # 0.5 Eosinophils # 0.6 H Basophils # 0.0 Nucleated Red Blood Cells # 0.0 Sodium Level 142 Potassium Level 4.2 Chloride Level 106 Carbon Dioxide Level 29 Anion Gap 7 Blood Urea Nitrogen 12 Creatinine 0.80 Est Glomerular Filtrat Rate mL/min > 60 Glucose Level 92 # Calcium Level 9.0 Phosphorus Level 3.6 Magnesium Level 1.8 Exam/Review of Systems Exam Vitals Vital Signs Date Temp Pulse Resp B/P (MAP) Pulse Ox O2 O2 Flow FiO2 Time Delivery Rate 12/22/18 98.1 68 16 138/85 94 Room Air 07:28 (102) 12/20/18 6.0 16:06 Intake and Output 12/21/18 12/21/18 12/22/18 1515:00 23:00 07:00 IntakeIntake Total 240 ml 600 ml 880 ml OutputOutput Total 1210 ml 640 ml 700 ml BalanceBalance -970 ml -40 ml 180 ml Results Results 24hrs Laboratory Tests Test 12/22/18 06:00 White Blood Count 6.4 # Red Blood Count 4.21 L Hemoglobin 11.3 L Hematocrit 35.1 L Mean Corpuscular Volume 83.4 Mean Corpuscular Hemoglobin 26.8 L Mean Corpuscular Hemoglobin Concent 32.2 Red Cell Distribution Width 13.7 Platelet Count 412 # Mean Platelet Volume 8.8 Immature Granulocytes % 0.500 H Neutrophils % 50.3 Lymphocytes % 31.1 Monocytes % 8.2 Eosinophils % 9.3 H Basophils % 0.6 Nucleated Red Blood Cells % 0.0 Immature Granulocytes # 0.030 Neutrophils # 3.2 Lymphocytes # 2.0 Monocytes # 0.5 Eosinophils # 0.6 H Basophils # 0.0 Nucleated Red Blood Cells # 0.0 Sodium Level 142 Potassium Level 4.2 Chloride Level 106 Carbon Dioxide Level 29 Anion Gap 7 Blood Urea Nitrogen 12 Creatinine 0.80 Est Glomerular Filtrat Rate mL/min > 60 Glucose Level 92 # Calcium Level 9.0 Phosphorus Level 3.6 Magnesium Level 1.8 Medications Medication Current Medications Amlodipine Besylate (Norvasc) 10 mg DAILY PO Last administered on 12/22/18 09:04; Admin Dose 10 MG; Start 12/19/18 at 09:00 IV Flush (NS 3 ml) 3 ml PER PROTOCOL IV ; Start 12/19/18 at 06:30 Ondansetron HCl (Zofran Inj) 4 mg Q6H PRN IV NAUSEA/VOMITING; Start 12/19/18 at 06:30 Acetaminophen (Tylenol Tab) 650 mg Q6H PRN PO .PAIN 1-3 OR TEMP; Start 12/19/18 at 06:30 Docusate Sodium (Colace) 100 mg Q12H PRN PO .CONSTIPATION; Start 12/19/18 at 06:30 Bisacodyl (Dulcolax) 5 mg DAILY PRN PO .CONSTIPATION; Start 12/19/18 at 06:30 Hydralazine HCl (Apresoline) 10 mg Q4H PRN IV ELEVATED BLOOD PRESSURE Last administered on 12/19/18at 08:43; Admin Dose 10 MG; Start 12/19/18 at 08:00 Lisinopril (Zestril) 10 mg DAILY PO Last administered on 12/22/18 09:04; Admin Dose 10 MG; Start 12/20/18 at 09:00 Hydromorphone HCl (Dilaudid) 1 mg Q4H PRN IV .SEVERE PAIN 7-10 Last administered on 12/22/18 11:26; Admin Dose 1 MG; Start 12/19/18 at 10:30 Cefepime HCl 50 ml @ 100 mls/hr Q12 IVPB Last administered on 12/22/18 11:26; Admin Dose 100 MLS/HR; Start 12/19/18 at 21:00 Vancomycin HCl (Vanco Iv Per Pharmacy) VANCOMYCIN PER PHARMACY PER PROTOCOL XX ; Start 12/19/18 at 18:00 Nicotine (Nicoderm 14 Mg/ 24hr) 1 patch DAILY TRANSDERM Last administered on 6/30/19at 09:05; Admin Dose 1 PATCH; Start 12/21/18 at 09:00 Vancomycin HCl 1.5 gm/Sodium Chloride 250 ml @ 83.333 mls/ hr Q12H IVPB Last administered on 12/22/18at 08:06; Admin Dose 83.333 MLS/HR; Start 12/21/18 at 20:00 Acetaminophen/ Hydrocodone Bitart ([place] (5/325)) 1 tab Q6H PRN PO MODERATE PAIN LEVEL 4-6 Last administered on 12/21/18at 17:45; Admin Dose 1 TAB; Start 12/21/18 at 11:30 Miscellaneous Information (*Rx Drug Level Order Reminder*) VANCOMYCIN TROUGH 12/23 AT 1900 1900 ONCE XX ; Start 12/23/18 at 19:00; Stop 12/23/18 at 19:01 NELLY SAUCEDO NP Dec 22, 2018 12:21
--- NOTE | 2018-12-22 12:53 | CONS ---
Consultation Date/Type/Reason Admit Date/Time Dec 19, 2018 at 06:00 Initial Consult Date SUBJECTIVE: Pt is awake, alert, looks comfortable, no fevers. S/P RT bicep wound debridement. VS: stable T: 98.1 LABS: Reviewed. WBC- 8.2--Improving MICROBILOGY: FUNGAL CULTURE Preliminary MYCOLOGY CULTURES ARE HELD 4 TO 6 WEEKS. ANY SIGNIFICANT GROWTH WILL BE REPORTED WHEN DETECTED. INTERIM REPORTS ARE NOT ISSUED. GRAM STAIN Final POLYMORPH. LEUKOCYTE RARE GRAM POS COCCI IN PAIRS 1+ WOUND CULTURE Preliminary Organism 1 STREP PYOGENES (GRP A) QUANTITY 1+ ======= MRSA SCREEN Final MRSA SCREEN Methicillin Resistant Staph aureus (MR SA)isolated (Ref Range Neg) . MULTI DRUG RESISTANT ORGANISM GRAM STAIN Final POLYMORPH. LEUKOCYTE RARE GRAM POS COCCI IN PAIRS 1+ WOUND CULTURE Preliminary Organism 1 STREP PYOGENES (GRP A) QUANTITY 1+ S PYOG (A) Zone Size RX --------- --- * CEFOTAXIME S * CLINDAMYCIN I * ERYTHROMYCIN I * PENICILLIN S * VANCOMYCIN S Antimicrobials: Vancomycin, cefepime Physical examination: GEN: Well-nourished well-developed middle-aged white man, who is alert in no distress. HENT: Head atraumatic normocephalic, sclera nonicteric, neck is supple PULM: chest rise symmetrical breath sounds clear Heart: S1-S2. Abdomen: soft, bowel sounds present. Extremities with left upper extremity and wound on the bicep area, right upper extremity with significant erythema induration over the right bicep area and forearm also covered with dressing Assessment: 1. Right upper extremity cellulitis with intramuscular bicep abscess-S/P debridement 12/20/18. 2. Polysubstance abuse 3. Hepatitis C positive 4. Hypertension Plan: Patient is stable. Recovering well. Continue current antibiotics. Bactroban to nares BID. Pain management. Date/Time of Note DATE: 12/22/18 TIME: 12:50 Exam/Review of Systems Exam Vitals Vital Signs Date Temp Pulse Resp B/P (MAP) Pulse Ox O2 O2 Flow FiO2 Time Delivery Rate 12/22/18 98.1 68 16 138/85 94 Room Air 07:28 (102) 12/20/18 6.0 16:06 Intake and Output 12/21/18 12/21/18 12/22/18 1515:00 23:00 07:00 IntakeIntake Total 240 ml 600 ml 880 ml OutputOutput Total 1210 ml 640 ml 700 ml BalanceBalance -970 ml -40 ml 180 ml Results Result Diagram: 12/22/18 0600 12/22/18 0600 Results 24hrs Laboratory Tests Test 12/22/18 06:00 White Blood Count 6.4 # Red Blood Count 4.21 L Hemoglobin 11.3 L Hematocrit 35.1 L Mean Corpuscular Volume 83.4 Mean Corpuscular Hemoglobin 26.8 L Mean Corpuscular Hemoglobin Concent 32.2 Red Cell Distribution Width 13.7 Platelet Count 412 # Mean Platelet Volume 8.8 Immature Granulocytes % 0.500 H Neutrophils % 50.3 Lymphocytes % 31.1 Monocytes % 8.2 Eosinophils % 9.3 H Basophils % 0.6 Nucleated Red Blood Cells % 0.0 Immature Granulocytes # 0.030 Neutrophils # 3.2 Lymphocytes # 2.0 Monocytes # 0.5 Eosinophils # 0.6 H Basophils # 0.0 Nucleated Red Blood Cells # 0.0 Sodium Level 142 Potassium Level 4.2 Chloride Level 106 Carbon Dioxide Level 29 Anion Gap 7 Blood Urea Nitrogen 12 Creatinine 0.80 Est Glomerular Filtrat Rate mL/min > 60 Glucose Level 92 # Calcium Level 9.0 Phosphorus Level 3.6 Magnesium Level 1.8 Medications Medication Current Medications Amlodipine Besylate (Norvasc) 10 mg DAILY PO Last administered on 12/22/18 09:04; Admin Dose 10 MG; Start 12/19/18 at 09:00 IV Flush (NS 3 ml) 3 ml PER PROTOCOL IV ; Start 12/19/18 at 06:30 Ondansetron HCl (Zofran Inj) 4 mg Q6H PRN IV NAUSEA/VOMITING; Start 12/19/18 at 06:30 Acetaminophen (Tylenol Tab) 650 mg Q6H PRN PO .PAIN 1-3 OR TEMP; Start 12/19/18 at 06:30 Docusate Sodium (Colace) 100 mg Q12H PRN PO .CONSTIPATION; Start 12/19/18 at 06:30 Bisacodyl (Dulcolax) 5 mg DAILY PRN PO .CONSTIPATION; Start 12/19/18 at 06:30 Hydralazine HCl (Apresoline) 10 mg Q4H PRN IV ELEVATED BLOOD PRESSURE Last administered on 12/19/18at 08:43; Admin Dose 10 MG; Start 12/19/18 at 08:00 Lisinopril (Zestril) 10 mg DAILY PO Last administered on 12/22/18 09:04; Admin Dose 10 MG; Start 12/20/18 at 09:00 Hydromorphone HCl (Dilaudid) 1 mg Q4H PRN IV .SEVERE PAIN 7-10 Last administered on 12/22/18 11:26; Admin Dose 1 MG; Start 12/19/18 at 10:30 Cefepime HCl 50 ml @ 100 mls/hr Q12 IVPB Last administered on 12/22/18 11:26; Admin Dose 100 MLS/HR; Start 12/19/18 at 21:00 Vancomycin HCl (Vanco Iv Per Pharmacy) VANCOMYCIN PER PHARMACY PER PROTOCOL XX ; Start 12/19/18 at 18:00 Nicotine (Nicoderm 14 Mg/ 24hr) 1 patch DAILY TRANSDERM Last administered on 12/22/18 09:05; Admin Dose 1 PATCH; Start 12/21/18 at 09:00 Vancomycin HCl 1.5 gm/Sodium Chloride 250 ml @ 83.333 mls/ hr Q12H IVPB Last administered on 12/22/18at 08:06; Admin Dose 83.333 MLS/HR; Start 12/21/18 at 20:00 Acetaminophen/ Hydrocodone Bitart ([place] (5/325)) 1 tab Q6H PRN PO MODERATE PAIN LEVEL 4-6 Last administered on 12/21/18at 17:45; Admin Dose 1 TAB; Start 12/21/18 at 11:30 Miscellaneous Information (*Rx Drug Level Order Reminder*) VANCOMYCIN TROUGH 12/23 AT 1900 1900 ONCE XX ; Start 12/23/18 at 19:00; Stop 12/23/18 at 19:01 NADEEM HOLLOWAY Dec 22, 2018 12:53
[2018-12-22 14:13] VITALS: BP 122/69; PULSE 87; RESP 16
[2018-12-22 20:29] VITALS: BP 126/80; PULSE 78; RESP 18
[2018-12-23] MEDS: HYDROmorphONE 1 MG/ML SYG IV PRN ×6 (00:47→21:26)
[2018-12-23 02:29] VITALS: BP 132/83; PULSE 71; RESP 16
[2018-12-23 08:00] VITALS: BP 141/95; PULSE 73; RESP 18
[2018-12-23] MEDS: CEFEPIME 1GM/50 ML (PMX) 50 ML IVPB SCH (08:55)
[2018-12-23] MEDS: NICOTINE (14 MG/24 HR) PATCH TRANSDERM SCH (08:58)
[2018-12-23] MEDS: LISINOPRIL 10 MG TAB PO SCH (09:00)
[2018-12-23] MEDS: AMLODIPINE 10 MG TAB PO SCH (09:00)
[2018-12-23] MEDS: VANCOMYCIN HCL 1.5 GM in SOD CHLORIDE 0.9% 250 ML IVPB SCH ×2 (09:50→19:49)
[2018-12-23] MEDS: MUPIROCIN 2% 22 GM OINT TOP SCH ×2 (12:05→19:51)
[2018-12-23 14:00] VITALS: BP 138/74; PULSE 76; RESP 20
--- NOTE | 2018-12-23 14:33 | PN ---
Date/Time of Note Date/Time of Note DATE: 12/23/18 TIME: 14:30 Assessment/Plan VTE Prophylaxis Risk score (from Ns)>0 risk: 2 SCD applied (from Ns): Yes Pharmacological prophylaxis: NA/contraindicated Pharm contraindication: low risk/ambulating Lines/Catheters [facility]from [facility] Mid Line Urinary Cath still in place: No Assessment/Plan Hospital Course Assessment and plan 1. Right bicep abscess. - Patient status post irrigation and debridement of right bicep on December 12, 2018. - Continue antibiotics. - Continue wound care. 2. Left upper extremity wound. - Continue with wound care. Stable at present. 3. Hypertension. - On antihypertensives. Will adjust as needed 4. History of nicotine use. - continue nicotine patch. 5. History of substance abuse. - Cessation was advised. Disposition plan. Continue antibiotics. Follow-up with ID to hopeful transition of oral antibiotics. workers compensation examiner to follow. Discussed POC with Dr. Larsen Result Diagram: 12/23/18 0508 12/23/18 0508 Results 24hrs Laboratory Tests Test 12/23/18 05:08 White Blood Count 7.3 Red Blood Count 4.61 L Hemoglobin 12.2 L Hematocrit 38.2 L Mean Corpuscular Volume 82.9 Mean Corpuscular Hemoglobin 26.5 L Mean Corpuscular Hemoglobin Concent 31.9 L Red Cell Distribution Width 13.8 Platelet Count 452 H Mean Platelet Volume 9.0 Immature Granulocytes % 0.800 H Neutrophils % 49.7 Lymphocytes % 32.4 Monocytes % 6.9 Eosinophils % 9.4 H Basophils % 0.8 Nucleated Red Blood Cells % 0.0 Immature Granulocytes # 0.060 H Neutrophils # 3.6 Lymphocytes # 2.4 Monocytes # 0.5 Eosinophils # 0.7 H Basophils # 0.1 Nucleated Red Blood Cells # 0.0 Sodium Level 142 Potassium Level 4.0 Chloride Level 105 Carbon Dioxide Level 28 Anion Gap 9 Blood Urea Nitrogen 15 Creatinine 0.79 Est Glomerular Filtrat Rate mL/min > 60 Glucose Level 86 Calcium Level 9.2 Phosphorus Level 4.1 Magnesium Level 1.8 Subjective 24 Hr Interval Summary Free Text/Dictation Patient remains comfortable at present. Denies any pain. No specific complaints. Exam/Review of Systems Exam Vitals Vital Signs Date Temp Pulse Resp B/P (MAP) Pulse Ox O2 O2 Flow FiO2 Time Delivery Rate 12/23/18 97.8 73 18 141/95 97 08:00 (110) 12/22/18 Room Air 14:13 12/20/18 6.0 16:06 Intake and Output 12/22/18 12/22/18 12/23/18 1414:59 22:59 06:59 IntakeIntake Total 1140 ml 410 ml 250 ml OutputOutput Total 651 ml 600 ml BalanceBalance 489 ml 410 ml -350 ml Constitutional: alert, oriented Psych: nl mood/affect Head: normocephalic Respiratory: clear to auscultation, normal air movement Cardiovascular: other (regular rate ) Gastrointestinal: soft, non-tender Musculoskeletal: swelling (right bicep with stitches in place ) 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, nl mental status, nl speech Skin: other (LUE with dressing in place, cdi ) Results Results 24hrs Laboratory Tests Test 12/23/18 05:08 White Blood Count 7.3 Red Blood Count 4.61 L Hemoglobin 12.2 L Hematocrit 38.2 L Mean Corpuscular Volume 82.9 Mean Corpuscular Hemoglobin 26.5 L Mean Corpuscular Hemoglobin Concent 31.9 L Red Cell Distribution Width 13.8 Platelet Count 452 H Mean Platelet Volume 9.0 Immature Granulocytes % 0.800 H Neutrophils % 49.7 Lymphocytes % 32.4 Monocytes % 6.9 Eosinophils % 9.4 H Basophils % 0.8 Nucleated Red Blood Cells % 0.0 Immature Granulocytes # 0.060 H Neutrophils # 3.6 Lymphocytes # 2.4 Monocytes # 0.5 Eosinophils # 0.7 H Basophils # 0.1 Nucleated Red Blood Cells # 0.0 Sodium Level 142 Potassium Level 4.0 Chloride Level 105 Carbon Dioxide Level 28 Anion Gap 9 Blood Urea Nitrogen 15 Creatinine 0.79 Est Glomerular Filtrat Rate mL/min > 60 Glucose Level 86 Calcium Level 9.2 Phosphorus Level 4.1 Magnesium Level 1.8 Medications Medication Current Medications Amlodipine Besylate (Norvasc) 10 mg DAILY PO Last administered on 12/23/18at 09:00; Admin Dose 10 MG; Start 12/19/18 at 09:00 IV Flush (NS 3 ml) 3 ml PER PROTOCOL IV ; Start 12/19/18 at 06:30 Ondansetron HCl (Zofran Inj) 4 mg Q6H PRN IV NAUSEA/VOMITING; Start 12/19/18 at 06:30 Acetaminophen (Tylenol Tab) 650 mg Q6H PRN PO .PAIN 1-3 OR TEMP; Start 12/19/18 at 06:30 Docusate Sodium (Colace) 100 mg Q12H PRN PO .CONSTIPATION; Start 12/19/18 at 06:30 Bisacodyl (Dulcolax) 5 mg DAILY PRN PO .CONSTIPATION; Start 12/19/18 at 06:30 Hydralazine HCl (Apresoline) 10 mg Q4H PRN IV ELEVATED BLOOD PRESSURE Last administered on 12/19/18at 08:43; Admin Dose 10 MG; Start 12/19/18 at 08:00 Lisinopril (Zestril) 10 mg DAILY PO Last administered on 12/23/18at 09:00; Admin Dose 10 MG; Start 12/20/18 at 09:00 Hydromorphone HCl (Dilaudid) 1 mg Q4H PRN IV .SEVERE PAIN 7-10 Last administered on 12/23/18at 13:01; Admin Dose 1 MG; Start 12/19/18 at 10:30 Cefepime HCl 50 ml @ 100 mls/hr Q12 IVPB Last administered on 12/23/18at 08:55; Admin Dose 100 MLS/HR; Start 12/19/18 at 21:00 Vancomycin HCl (Vanco Iv Per Pharmacy) VANCOMYCIN PER PHARMACY PER PROTOCOL XX ; Start 12/19/18 at 18:00 Nicotine (Nicoderm 14 Mg/ 24hr) 1 patch DAILY TRANSDERM Last administered on 12/23/18at 08:58; Admin Dose 1 PATCH; Start 12/21/18 at 09:00 Vancomycin HCl 1.5 gm/Sodium Chloride 250 ml @ 83.333 mls/ hr Q12H IVPB Last administered on 12/23/18at 09:50; Admin Dose 83.333 MLS/HR; Start 12/21/18 at 2 0:00 Acetaminophen/ Hydrocodone Bitart ([place] (5/325)) 1 tab Q6H PRN PO MODERATE PAIN LEVEL 4-6 Last administered on 12/21/18at 17:45; Admin Dose 1 TAB; Start 12/21/18 at 11:30 Miscellaneous Information (*Rx Drug Level Order Reminder*) 1 0700 ONCE XX ; Start 12/24/18 at 07:00; Stop 12/24/18 at 07:01 Mupirocin (Bactroban) 1 applic BID TOP Last administered on 12/23/18at 12:05; Admin Dose 1 APPLIC; Start 12/23/18 at 11:00 DAPHNIE CINTRON NP Dec 23, 2018 14:33
--- NOTE | 2018-12-23 15:25 | CONS ---
Assessment/Plan Assessment/Plan Hospital Course (Demo Recall) Alert feels good no fevers overnight. Microbiology: Culture grew strep pyogenous MRSA swab positive Antimicrobials: Vancomycin, cefepime Physical examination: Well-nourished well-developed middle-aged white man who is alert in no distress. Head atraumatic normocephalic sclera nonicteric neck is supple chest rise symmetrical breath sounds clear heart: S1-S2. Abdomen soft bowel sounds present. Extremities with left upper extremity and dry wound on the bicep area, right upper extremity with significant erythema induration over the right bicep area and forearm also covered with dressing Assessment: 1. Right upper extremity cellulitis with intramuscular bicep abscess, status post debridement abscess 2. Polysubstance abuse 3. Hepatitis C positive 4. Hypertension Plan: Stable, continue vancomycin, anticipate discharge on oral clindamycin to complete 10 days therapy Consultation Date/Type/Reason Admit Date/Time Dec 19, 2018 at 06:00 Initial Consult Date 12/19/18 Type of Consult id Date/Time of Note DATE: 12/23/18 TIME: 15:23 Exam/Review of Systems Exam Vitals Vital Signs Date Temp Pulse Resp B/P (MAP) Pulse Ox O2 O2 Flow FiO2 Time Delivery Rate 12/23/18 97.8 73 18 141/95 97 08:00 (110) 12/22/18 Room Air 14:13 12/20/18 6.0 16:06 Intake and Output 12/22/18 12/22/18 12/23/18 1515:00 23:00 07:00 IntakeIntake Total 1140 ml 410 ml 250 ml OutputOutput Total 651 ml 600 ml BalanceBalance 489 ml 410 ml -350 ml Results Result Diagram: 12/23/18 0508 12/23/18 0508 Results 24hrs Laboratory Tests Test 12/23/18 05:08 White Blood Count 7.3 Red Blood Count 4.61 L Hemoglobin 12.2 L Hematocrit 38.2 L Mean Corpuscular Volume 82.9 Mean Corpuscular Hemoglobin 26.5 L Mean Corpuscular Hemoglobin Concent 31.9 L Red Cell Distribution Width 13.8 Platelet Count 452 H Mean Platelet Volume 9.0 Immature Granulocytes % 0.800 H Neutrophils % 49.7 Lymphocytes % 32.4 Monocytes % 6.9 Eosinophils % 9.4 H Basophils % 0.8 Nucleated Red Blood Cells % 0.0 Immature Granulocytes # 0.060 H Neutrophils # 3.6 Lymphocytes # 2.4 Monocytes # 0.5 Eosinophils # 0.7 H Basophils # 0.1 Nucleated Red Blood Cells # 0.0 Sodium Level 142 Potassium Level 4.0 Chloride Level 105 Carbon Dioxide Level 28 Anion Gap 9 Blood Urea Nitrogen 15 Creatinine 0.79 Est Glomerular Filtrat Rate mL/min > 60 Glucose Level 86 Calcium Level 9.2 Phosphorus Level 4.1 Magnesium Level 1.8 Medications Medication Current Medications Amlodipine Besylate (Norvasc) 10 mg DAILY PO Last administered on 12/23/18at 09:00; Admin Dose 10 MG; Start 12/19/18 at 09:00 IV Flush (NS 3 ml) 3 ml PER PROTOCOL IV ; Start 12/19/18 at 06:30 Ondansetron HCl (Zofran Inj) 4 mg Q6H PRN IV NAUSEA/VOMITING; Start 12/19/18 at 06:30 Acetaminophen (Tylenol Tab) 650 mg Q6H PRN PO .PAIN 1-3 OR TEMP; Start 12/19/18 at 06:30 Docusate Sodium (Colace) 100 mg Q12H PRN PO .CONSTIPATION; Start 12/19/18 at 06:30 Bisacodyl (Dulcolax) 5 mg DAILY PRN PO .CONSTIPATION; Start 12/19/18 at 06:30 Hydralazine HCl (Apresoline) 10 mg Q4H PRN IV ELEVATED BLOOD PRESSURE Last administered on 12/19/18at 08:43; Admin Dose 10 MG; Start 12/19/18 at 08:00 Lisinopril (Zestril) 10 mg DAILY PO Last administered on 12/23/18at 09:00; Admin Dose 10 MG; Start 12/20/18 at 09:00 Hydromorphone HCl (Dilaudid) 1 mg Q4H PRN IV .SEVERE PAIN 7-10 Last administered on 12/23/18at 13:01; Admin Dose 1 MG; Start 12/19/18 at 10:30 Cefepime HCl 50 ml @ 100 mls/hr Q12 IVPB Last administered on 12/23/18at 08:55; Admin Dose 100 MLS/HR; Start 12/19/18 at 21:00 Vancomycin HCl (Vanco Iv Per Pharmacy) VANCOMYCIN PER PHARMACY PER PROTOCOL XX ; Start 12/19/18 at 18:00 Nicotine (Nicoderm 14 Mg/ 24hr) 1 patch DAILY TRANSDERM Last administered on 12/23/18at 08:58; Admin Dose 1 PATCH; Start 12/21/18 at 09:00 Vancomycin HCl 1.5 gm/Sodium Chloride 250 ml @ 83.333 mls/ hr Q12H IVPB Last administered on 12/23/18at 09:50; Admin Dose 83.333 MLS/HR; Start 12/21/18 at 20:00 Acetaminophen/ Hydrocodone Bitart ([place] (5/325)) 1 tab Q6H PRN PO MODERATE PAIN LEVEL 4-6 Last administered on 12/21/18at 17:45; Admin Dose 1 TAB; Start 12/21/18 at 11:30 Miscellaneous Information (*Rx Drug Level Order Reminder*) 1 0700 ONCE XX ; Start 12/24/18 at 07:00; Stop 12/24/18 at 07:01 Mupirocin (Bactroban) 1 applic BID TOP Last administered on 12/23/18at 12:05; Admin Dose 1 APPLIC; Start 12/23/18 at 11:00 SÁNCHEZ SCHROEDER NP Dec 23, 2018 15:25
[2018-12-23 20:00] VITALS: BP 138/83; PULSE 76; RESP 19
[2018-12-23 22:00] VITALS: BP 146/93; PULSE 77; RESP 19
[2018-12-24 02:00] VITALS: BP 146/93; PULSE 77; RESP 19
[2018-12-24] MEDS: HYDROmorphONE 1 MG/ML SYG IV PRN ×5 (03:19→20:35)
[2018-12-24 08:14] VITALS: BP 156/90; PULSE 62; RESP 16
[2018-12-24] MEDS: MUPIROCIN 2% 22 GM OINT TOP SCH ×3 (09:00→20:35)
[2018-12-24] MEDS ORDERED: AMLO-147 PO (10:00)
[2018-12-24] MEDS ORDERED: CLIN300C10 PO (10:00)
[2018-12-24] MEDS ORDERED: LISI10TA2 PO (10:00)
[2018-12-24] MEDS ORDERED: SACC250C PO (10:00)
[2018-12-24] MEDS: VANCOMYCIN HCL 1.5 GM in SOD CHLORIDE 0.9% 250 ML IVPB SCH (10:02)
[2018-12-24] MEDS: LISINOPRIL 10 MG TAB PO SCH (10:03)
[2018-12-24] MEDS: NICOTINE (14 MG/24 HR) PATCH TRANSDERM SCH (10:03)
[2018-12-24] MEDS: AMLODIPINE 10 MG TAB PO SCH (10:03)
[2018-12-24] MEDS ORDERED: HYDR-4011 PO (10:05)
--- NOTE | 2018-12-24 10:07 | PDOCDIS ---
Discharge Instructions DIAGNOSIS Discharge Diagnosis 1. Right bicep abscess. 2. Left upper extremity wound. 3. Hypertension. 4. History of nicotine use. 5. History of substance abuse. CONDITION [id number] Patient Condition: [id number] Stable HOME CARE INSTRUCTIONS: [id number] Diet Instructions: [id number] Low Fat /Cholesterol FOLLOW UP/APPOINTMENTS Follow-up Plan 1. Follow up with Dr. Johnny Weiss in one week Office Address [address] [place] [id number] Office DAPHNIE CINTRON NP Dec 24, 2018 10:07
--- NOTE | 2018-12-24 11:16 | CONS ---
Assessment/Plan Assessment/Plan Hospital Course (Demo Recall) Looks comfortable, no fevers Microbiology: Culture grew strep pyogenous MRSA swab positive Antimicrobials: Vancomycin Physical examination: Well-nourished well-developed middle-aged white man who is alert in no distress. Head atraumatic normocephalic sclera nonicteric neck is supple chest rise symmetrical breath sounds clear heart: S1-S2. Abdomen soft bowel sounds present. Extremities with left upper extremity and dry wound on the bicep area, right upper extremity with significant erythema induration over the right bicep area and forearm also covered with dressing Assessment: 1. Right upper extremity cellulitis with intramuscular bicep abscess, status post debridement abscess 2. Polysubstance abuse 3. Hepatitis C positive 4. Hypertension Plan: Stable, anticipate discharge on oral clindamycin to complete 10 days therapy Consultation Date/Type/Reason Admit Date/Time Dec 19, 2018 at 06:00 Initial Consult Date 12/19/18 Type of Consult id Date/Time of Note DATE: 12/24/18 TIME: 11:15 Exam/Review of Systems Exam Vitals Vital Signs Date Temp Pulse Resp B/P (MAP) Pulse Ox O2 O2 Flow FiO2 Time Delivery Rate 12/24/18 98.0 62 16 156/90 97 08:14 (112) 12/22/18 Room Air 14:13 12/20/18 6.0 16:06 Intake and Output 12/23/18 12/23/18 12/24/18 1515:00 23:00 07:00 IntakeIntake Total 1020 ml 250 ml 380 ml OutputOutput Total 950 ml 250 ml 700 ml BalanceBalance 70 ml 0 ml -320 ml Results Result Diagram: 12/24/18 0653 12/24/18 0653 Results 24hrs Laboratory Tests Test 12/24/18 06:53 White Blood Count 7.8 Red Blood Count 4.80 Hemoglobin 12.7 L Hematocrit 39.5 L Mean Corpuscular Volume 82.3 Mean Corpuscular Hemoglobin 26.5 L Mean Corpuscular Hemoglobin Concent 32.2 Red Cell Distribution Width 13.7 Platelet Count 459 H Mean Platelet Volume 8.5 Immature Granulocytes % 1.000 H Neutrophils % 59.6 Lymphocytes % 26.3 Monocytes % 6.0 Eosinophils % 6.3 Basophils % 0.8 Nucleated Red Blood Cells % 0.0 Immature Granulocytes # 0.080 H Neutrophils # 4.7 Lymphocytes # 2.1 Monocytes # 0.5 Eosinophils # 0.5 Basophils # 0.1 Nucleated Red Blood Cells # 0.0 Sodium Level 142 Potassium Level 4.3 Chloride Level 106 Carbon Dioxide Level 27 Anion Gap 9 Blood Urea Nitrogen 18 Creatinine 0.77 Est Glomerular Filtrat Rate mL/min > 60 Glucose Level 86 Calcium Level 9.1 Phosphorus Level 3.8 Magnesium Level 1.8 Vancomycin Level Trough 17.0 Medications Medication Current Medications Amlodipine Besylate (Norvasc) 10 mg DAILY PO Last administered on 12/24/18at 10:03; Admin Dose 10 MG; Start 12/19/18 at 09:00 IV Flush (NS 3 ml) 3 ml PER PROTOCOL IV ; Start 12/19/18 at 06:30 Ondansetron HCl (Zofran Inj) 4 mg Q6H PRN IV NAUSEA/VOMITING; Start 12/19/18 at 06:30 Acetaminophen (Tylenol Tab) 650 mg Q6H PRN PO .PAIN 1-3 OR TEMP; Start 12/19/18 at 06:30 Docusate Sodium (Colace) 100 mg Q12H PRN PO .CONSTIPATION; Start 12/19/18 at 06 :30 Bisacodyl (Dulcolax) 5 mg DAILY PRN PO .CONSTIPATION; Start 12/19/18 at 06:30 Hydralazine HCl (Apresoline) 10 mg Q4H PRN IV ELEVATED BLOOD PRESSURE Last administered on 12/19/18at 08:43; Admin Dose 10 MG; Start 12/19/18 at 08:00 Lisinopril (Zestril) 10 mg DAILY PO Last administered on 12/24/18at 10:03; Admin Dose 10 MG; Start 12/20/18 at 09:00 Hydromorphone HCl (Dilaudid) 1 mg Q4H PRN IV .SEVERE PAIN 7-10 Last administered on 12/24/18 08:00; Admin Dose 1 MG; Start 12/19/18 at 10:30 Vancomycin HCl (Vanco Iv Per Pharmacy) VANCOMYCIN PER PHARMACY PER PROTOCOL XX ; Start 12/19/18 at 18:00 Nicotine (Nicoderm 14 Mg/ 24hr) 1 patch DAILY TRANSDERM Last administered on 12/24/18at 10:03; Admin Dose 1 PATCH; Start 12/21/18 at 09:00 Acetaminophen/ Hydrocodone Bitart ([place] (5/325)) 1 tab Q6H PRN PO MODERATE PAIN LEVEL 4-6 Last administered on 12/21/18at 17:45; Admin Dose 1 TAB; Start 12/21/18 at 11:30 Mupirocin (Bactroban) 1 applic BID TOP Last administered on 12/23/18at 19:51; Admin Dose 1 APPLIC; Start 12/23/18 at 11:00 Vancomycin HCl 1.25 gm/Sodium Chloride 250 ml @ 83.333 mls/ hr Q12H IVPB ; Start 12/24/18 at 22:00 SÁNCHEZ SCHROEDER NP Dec 24, 2018 11:16
[2018-12-24 14:00] VITALS: BP 139/74; PULSE 84; RESP 16
--- NOTE | 2018-12-24 19:46 | PN ---
Date/Time of Note Date/Time of Note DATE: 12/24/18 TIME: 19:43 Assessment/Plan VTE Prophylaxis Risk score (from Ns)>0 risk: 2 SCD applied (from Ns): Yes Pharmacological prophylaxis: NA/contraindicated Pharm contraindication: low risk/ambulating Lines/Catheters IV [facility] Mid Line Urinary Cath still in place: No Assessment/Plan Hospital Course Assessment and plan 1. Right bicep abscess. - Patient status post irrigation and debridement of right bicep on December 12, 2018. - Continue antibiotics. - Continue wound care. 2. Left upper extremity wound. - Continue with wound care. Stable at present. 3. Hypertension. - On antihypertensives. Will adjust as needed 4. History of nicotine use. - continue nicotine patch. 5. History of substance abuse. - Cessation was advised. Disposition plan. Awaiting transfer to [facility]. continue supportive care and current tx Discussed POC with Dr. Larsen Result Diagram: 12/24/18 0653 12/24/18 0653 Results 24hrs Laboratory Tests Test 12/24/18 06:53 White Blood Count 7.8 Red Blood Count 4.80 Hemoglobin 12.7 L Hematocrit 39.5 L Mean Corpuscular Volume 82.3 Mean Corpuscular Hemoglobin 26.5 L Mean Corpuscular Hemoglobin Concent 32.2 Red Cell Distribution Width 13.7 Platelet Count 459 H Mean Platelet Volume 8.5 Immature Granulocytes % 1.000 H Neutrophils % 59.6 Lymphocytes % 26.3 Monocytes % 6.0 Eosinophils % 6.3 Basophils % 0.8 Nucleated Red Blood Cells % 0.0 Immature Granulocytes # 0.080 H Neutrophils # 4.7 Lymphocytes # 2.1 Monocytes # 0.5 Eosinophils # 0.5 Basophils # 0.1 Nucleated Red Blood Cells # 0.0 Sodium Level 142 Potassium Level 4.3 Chloride Level 106 Carbon Dioxide Level 27 Anion Gap 9 Blood Urea Nitrogen 18 Creatinine 0.77 Est Glomerular Filtrat Rate mL/min > 60 Glucose Level 86 Calcium Level 9.1 Phosphorus Level 3.8 Magnesium Level 1.8 Vancomycin Level Trough 17.0 Subjective 24 Hr Interval Summary Free Text/Dictation no s/s of distress. denies any pain. Exam/Review of Systems Exam Vitals Vital Signs Date Temp Pulse Resp B/P (MAP) Pulse Ox O2 O2 Flow FiO2 Time Delivery Rate 12/24/18 98.1 84 16 139/74 93 14:00 (95) 12/22/18 Room Air 14:13 12/20/18 6.0 16:06 Intake and Output 12/23/18 12/23/18 12/24/18 1515:00 23:00 07:00 IntakeIntake Total 1020 ml 250 ml 380 ml OutputOutput Total 950 ml 250 ml 700 ml BalanceBalance 70 ml 0 ml -320 ml Exam Constitutional: alert, oriented Psych: nl mood/affect Head: normocephalic Respiratory: clear to auscultation, normal air movement Cardiovascular: other (regular rate ) Gastrointestinal: soft, non-tender Musculoskeletal: swelling (right bicep with stitches in place ) Neurological: COLLAR BASTER JUMPBASTING II-XII intact, nl mental status, nl speech Skin: other (LUE with dressing in place, cdi ) Results Results 24hrs Laboratory Tests Test 12/24/18 06:53 White Blood Count 7.8 Red Blood Count 4.80 Hemoglobin 12.7 L Hematocrit 39.5 L Mean Corpuscular Volume 82.3 Mean Corpuscular Hemoglobin 26.5 L Mean Corpuscular Hemoglobin Concent 32.2 Red Cell Distribution Width 13.7 Platelet Count 459 H Mean Platelet Volume 8.5 Immature Granulocytes % 1.000 H Neutrophils % 59.6 Lymphocytes % 26.3 Monocytes % 6.0 Eosinophils % 6.3 Basophils % 0.8 Nucleated Red Blood Cells % 0.0 Immature Granulocytes # 0.080 H Neutrophils # 4.7 Lymphocytes # 2.1 Monocytes # 0.5 Eosinophils # 0.5 Basophils # 0.1 Nucleated Red Blood Cells # 0.0 Sodium Level 142 Potassium Level 4.3 Chloride Level 106 Carbon Dioxide Level 27 Anion Gap 9 Blood Urea Nitrogen 18 Creatinine 0.77 Est Glomerular Filtrat Rate mL/min > 60 Glucose Level 86 Calcium Level 9.1 Phosphorus Level 3.8 Magnesium Level 1.8 Vancomycin Level Trough 17.0 Medications Medication Current Medications Amlodipine Besylate (Norvasc) 10 mg DAILY PO Last administered on 12/24/18at 10:03; Admin Dose 10 MG; Start 12/19/18 at 09:00 IV Flush (NS 3 ml) 3 ml PER PROTOCOL IV ; Start 12/19/18 at 06:30 Ondansetron HCl (Zofran Inj) 4 mg Q6H PRN IV NAUSEA/VOMITING; Start 12/19/18 at 06:30 Acetaminophen (Tylenol Tab) 650 mg Q6H PRN PO .PAIN 1-3 OR TEMP; Start 12/19/18 at 06:30 Docusate Sodium (Colace) 100 mg Q12H PRN PO .CONSTIPATION; Start 12/19/18 at 06:30 Bisacodyl (Dulcolax) 5 mg DAILY PRN PO .CONSTIPATION; Start 12/19/18 at 06:30 Hydralazine HCl (Apresoline) 10 mg Q4H PRN IV ELEVATED BLOOD PRESSURE Last administered on 12/19/18at 08:43; Admin Dose 10 MG; Start 12/19/18 at 08:00 Lisinopril (Zestril) 10 mg DAILY PO Last administered on 12/24/18at 10:03; Admin Dose 10 MG; Start 12/20/18 at 09:00 Hydromorphone HCl (Dilaudid) 1 mg Q4H PRN IV .SEVERE PAIN 7-10 Last administered on 12/24/18at 16:32; Admin Dose 1 MG; Start 12/19/18 at 10:30 Vancomycin HCl (Vanco Iv Per Pharmacy) VANCOMYCIN PER PHARMACY PER PROTOCOL XX ; Start 12/19/18 at 18:00 Nicotine (Nicoderm 14 Mg/ 24hr) 1 patch DAILY TRANSDERM Last administered on 12/24/18at 10:03; Admin Dose 1 PATCH; Start 12/21/18 at 09:00 Acetaminophen/ Hydrocodone Bitart ([place] (5/325)) 1 tab Q6H PRN PO MODERATE PAIN LEVEL 4-6 Last administered on 12/21/18at 17:45; Admin Dose 1 TAB; Start 12/21/18 at 11:30 Mupirocin (Bactroban) 1 applic BID TOP Last administered on 12/23/18at 19:51; Admin Dose 1 APPLIC; Start 12/23/18 at 11:00 Vancomycin HCl 1.25 gm/Sodium Chloride 250 ml @ 83.333 mls/ hr Q12H IVPB ; Start 12/24/18 at 22:00 DAPHNIE CINTRON NP Dec 24, 2018 19:46
[2018-12-24 20:00] VITALS: BP 129/74; PULSE 87; RESP 19
[2018-12-24] MEDS: VANCOMYCIN HCL 1.25 GM in SOD CHLORIDE 0.9% 250 ML IVPB SCH (22:01)
[2018-12-25] MEDS: HYDROmorphONE 1 MG/ML SYG IV PRN ×4 (00:43→13:04)
[2018-12-25 02:00] VITALS: BP 118/73; PULSE 74; RESP 19
[2018-12-25 08:00] VITALS: BP 128/81; PULSE 63; RESP 16
[2018-12-25] MEDS: NICOTINE (14 MG/24 HR) PATCH TRANSDERM SCH (09:03)
[2018-12-25] MEDS: AMLODIPINE 10 MG TAB PO SCH (09:04)
[2018-12-25] MEDS: LISINOPRIL 10 MG TAB PO SCH (09:04)
[2018-12-25] MEDS: MUPIROCIN 2% 22 GM OINT TOP SCH (09:08)
[2018-12-25] MEDS: VANCOMYCIN HCL 1.25 GM in SOD CHLORIDE 0.9% 250 ML IVPB SCH (10:42)
[2018-12-25 14:00] VITALS: BP 118/65; PULSE 81; RESP 16
--- NOTE | 2018-12-25 20:30 | DS ---
Date/Time of Note Date/Time of Note DATE: 12/25/18 TIME: 20:27 Discharge Summary Admission/Discharge Info Admit Date/Time Dec 19, 2018 at 06:00 Discharge Date/Time Dec 25, 2018 at 16:15 Discharge Diagnosis 1. Right bicep abscess. 2. Left upper extremity wound. 3. Hypertension. 4. History of nicotine use. 5. History of substance abuse. Patient Condition: Stable Hospital Course This is a 53-year-old male with history of hypertension, polysubstance abuse, who came to the hospital for multiple abscesses on his arms. 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 He was seen by surgeon and did undergo irrigation and debridement of right upper extremity abscess. He did tolerate it well and we got a ID consult to see the patient as well to place him on appropriate antibiotics. He was seen by social services technician due to reported homeless status. We did plan to transfer him to [facility] for further management and care of his substance abuse. After discussing with social services technician was plan for patient to be discharged and follow-up with rehab. Due to bed unavailability we did offer the patient alternative rehab however patient declined and preferred to go to [facility]. Patient was homeless and declined home with services and emergency usp resources. He did state that he would follow-up with [facility] on his own. During his course of stay he did improve. He was prescribed appropriate antibiotics and placed on antihypertensives for his high blood pressure and he was counseled about substance abuse cessation. The plan of care was discussed with the patient and he verbalizes understanding. On the day of discharge patient was in stable condition Discussed POC with Dr. Larsen [place] Med[facility] Active Scripts Hydrocodone/Acetaminophen ([employer] 5-325 Tablet) 1 Each Tablet, 1 EACH PO Q4 for SEVERE PAIN LEVEL 7-10, #15 TAB Prov:DAPHNIE CINTRON [employer] 12/24/18 Saccharomyces Boulardii* (Florastor*) 250 Mg Cap, 500 MG PO BID, #40 CAP Prov:REGDAPHNIE ALEXANDER [employer] 12/24/18 Clindamycin Hcl* (Clindamycin Hcl*) 300 Mg Capsule, 300 MG PO Q8, #30 CAP Prov:DAPHNIE CINTRON [employer] 12/24/18 Lisinopril* (Lisinopril*) 10 Mg Tablet, 10 MG PO DAILY, #30 TAB Prov:DAPHNIE CINTRON NP 12/24/18 Amlodipine Besylate* (Amlodipine Besylate*) 10 Mg Tablet, 10 MG PO DAILY, #60 TAB Prov:DAPHNIE CINTRON NP 12/24/18 Sertraline Hcl* (Sertraline Hcl*) 50 Mg Tablet, 50 MG PO HS, #30 TAB Prov:RONNAEDWARD JOHNSON 02/20/17 Follow-up Plan 1. Follow up with Dr. Johnny Weiss in one week Office Address [address] [place] [id number] Office Primary Care Provider John Castrejon MD Time spent on discharge: > 30 minutes DAPHNIE CINTRON NP Dec 25, 2018 20:30
== END 2018-12-25 16:15 | disposition other institution (70) | DRG 581 ==
LOC: E/R 03:51 → PP2 06:00
PROVIDERS: ADMIT Family Medicine; ATTEND Family Medicine
PROC: 0JDG0ZZ Extraction of Right Lower Arm Subcutaneous Tissue and Fascia, Open Approach (ICD-10-PCS; 2018-12-20)
PROC: 0KB70ZZ Excision of Right Upper Arm Muscle, Open Approach (ICD-10-PCS; principal; 2018-12-20 17:30)
DX: L03.113 Cellulitis of right upper limb (principal); L03.114 Cellulitis of left upper limb; F11.10 Opioid abuse, uncomplicated; I10 Essential (primary) hypertension; F17.200 Nicotine dependence, unspecified, uncomplicated; B19.20 Unspecified viral hepatitis C without hepatic coma; D64.9 Anemia, unspecified; R76.8 Other specified abnormal immunological findings in serum
CPT/HCPCS: 71045; 73200; 80048; 80053; 80202; 83036; 83735; 84100; 84443; 85025; 85610; 85651; 86140; 86703; 86706; 86803; 86850; 86900; 86901; 87070; 87075; 87081; 87102; 87340; 93005; J0360; J0690; J0692; J1170; J2001; J2250; J2405; J3010; J3370; J7030; J7050; Q9967